=== PATIENT | male | born 1975 | race Caucasian/White ===

== ENCOUNTER 2020-03-27 17:45 | Emergency (ER) | payer SELFPAY ==
[~2020-03-27] VITALS: Ht 188 cm; Wt 125.2 kg
--- OUTSIDE RECORDS SUMMARY | 2020-03-27 18:05 | XMS REPORT ---
Author Author [facility] t Organization [facility] Address [address] [place] [address] Phone Unavailable Care Team Providers Care Manager Apple Name Role Phone Asked, Pcp No PCP Unavailable Ron SHIPMAN, Denys Cassidy Attphys Dane Mclain DO Attphys Sawyer SHIPMAN, Scott Attphys Delaney SHIPMAN, Tere Bright Attphys Grant SHIPMAN, Jenna Attphys Angelica SHIPMAN, Lia Attphys Janet Zuniga MD Attphys ROBIN CHAU NP Attphys Unavailable GILLES LEIVA NP Attphys Unavailable VALERIA PEOPLES M.D. Attphys Unavailable RAMÍREZ MCLAIN Admphys Unavailable Payers Payer Name Policy Type Policy Number Effective Date Expiration Date S ource [facility] PRESUMED INDIGENTPRESUMED INDIGENTxxxxxxxx2020- 020 xxxxxxxxx 2020 00:00:00 2020 23:59:59 [facility] Problems Condition Name Condition Details Condition Category Status Onset Date Resolution Date Last Treatment Date Treating Clinician Comments Source Chest pain Chest pain Disease Active 2020-03-17 00:00:00 [facility] Headache Headache Disease Active 2020-03-17 00:00:00 [facility] Nonintractable headache Nonintractable headache Disease Active 2020-03-16 00:00:[address] History of asthma History of asthma Problem Resolved [facility] History of hemorrhoids History of hemorrhoids Problem Resolved [facility] Right radial head fracture Right radial head fracture Problem Active [facility] Encounter to establish care with new doctor Encounter to establish care with new doctor Problem Active [facility] History of Hay fever History of Hay fever Problem Resolved [facility] History of Hernia History of Hernia Problem Resolved [facility] Anxiety and depression Anxiety and depression Problem Active [facility] Hemorrhoids Hemorrhoids Disease Active [facility] Thrombosed external hemorrhoid Thrombosed external hemorrhoid Disease Active [facility] Internal hemorrhoid Internal hemorrhoid Disease Active [facility] Seizures Seizures Disease Active [facility] Pain Pain Disease Active [facility] Allergies, Adverse Reactions, Alerts Allergy Name Allergy Type Status Severity Reaction(s) Onset Date Inacti ve Date Treating Clinician Comments Source Pyrazoles DA Active SV 2020-03-21 00:00:00 [facility] NSAIDS (Non-Steroidal Anti-Inflamma DA Active SV 2020-03-03 0 00:00:00 [facility] codeine DA Active SV 2020-03-21 00:00:00 [facility] aspirin DA Active SV 2020-03-21 00:00:00 [facility] salicylates DA Active U 2020-03-21 00:00:00 [facility] Pyrazoles DA Active SV 2018-06-11 00:00:00 [facility] NSAIDS (Non-Steroidal Anti-Inflamma DA Active SV 2018-06-02 0 00:00:00 [facility] codeine DA Active SV 2018-06-11 00:00:00 [facility] aspirin DA Active SV 2018-06-11 00:00:00 [facility] salicylates DA Active U 2018-06-11 00:00:00 [facility] Codeine Propensity to adverse reactions to drug Active Other (See Comments) 2018-06-07 00:00:00 [facility] [place] [facility]ist Family History Family Member Diagnosis Comments Start Date Stop Date Source Mother Family history of diabetes mellitus [facility] Mother Family history of hypertension [facility] Mother Family history of arthritis [facility] Mother Family history of malignant neoplasm [facility] Father Family history of diabetes mellitus [facility] Father Family history of hypertension [facility] Father Family history of arthritis [facility] Father Family history of malignant neoplasm [facility] Social History Social Habit Start Date Stop Date Quantity Comments Source Sex Assigned At [facility] Exposure to SARS-CoV-2 (event) Not sure [facility] Alcohol intake 2020-03-16 00:00:00 2020-03-16 00:00:00 Current non-drinker of alcohol (finding) [facility] Smoking Status Start Date Stop Date Source Current some day smoker [facility] Never smoker [facility] Medications Ordered Medication Name Filled Medication Name Start Date Stop Da te Current Medication? Ordering Clinician Indication Dosage Frequency Signature (SIG) Comments Components Source wowhugcdpq-jqmhapv-wjlvtnea (FIORINAL) 50-325-40 mg per caps ule 2020-03-19 00:00:00 2020-03-26 23:59:00 No 1{capsule} Q4H Take 1 capsule by mouth every 4 (four) hours as needed for headaches for up to 10 doses. [facility] levETIRAcetam (KEPPRA) 500 mg tablet 2020-03-14 00:00:00 Yes Acute intractable headache, unspecified headache type 500mg Q.5D Take 1 tablet by mouth [address] [facility] DULoxetine HCl - 20 MG Oral Capsule Delayed Release Pa rticles DULoxetine HCl - 20 MG Oral Capsule Delayed Release Particles 2018-08-19 00:00:00 Yes GILLES LEIVA NKeith 1 TAKE 1 CAPSULE BEDTIME [facility] acetaminophen (TYLENOL) 500 mg tablet 2018-06-23 00:00:00 Yes Internal hemorrhoid 500mg Take 1 tablet by mouth every 6 hours as needed for Pain. [facility] Vital Signs Vital Name Observation Time Observation Value Comments Source Systolic blood pressure 2020-03-19 15:25:57 110 mm[Hg] [facility] Diastolic blood pressure 2020-03-19 15:25:57 64 mm[Hg] [facility] Heart rate 2020-03-19 15:25:57 67 /min [facility] Alcazarist Body temperature 2020-03-19 15:25:57 35.72 Mayra Tati [facility] Respiratory rate 2020-03-19 15:25:57 20 /min Tati [facility] Oxygen saturation in Arterial blood by Pulse oximetry 03-19 15:25:57 98 /min [facility] Body height 2020-03-16 16:30:00 185.4 cm [facility] Body weight 2020-03-16 16:30:00 102.74 kg P[facility] Maier BMI 2020-03-16 16:30:00 29.88 kg/m2 [place] [facility] Systolic blood pressure 2020-03-14 21:15:00 147 mm[Hg] [facility] Diastolic blood pressure 2020-03-14 21:15:00 99 mm[Hg] [facility] Heart rate 2020-03-14 21:15:00 99 /min [facility] Body temperature 2020-03-14 21:15:00 36.78 [facility]ra [facility] Respiratory rate 2020-03-14 21:15:00 19 /min Jesse is [facility] Oxygen saturation in Arterial blood by Pulse oximetry 03-14 21:15:00 96 /min [facility] BP Systolic 2018-08-19 13:04:00 147 mm[Hg] Location: [facility] [place] on: [facility] BP Diastolic 2018-08-19 13:04:00 98 mm[Hg] Location: [facility] [place] on: [facility] Weight 2018-08-19 13:04:00 251.8 [lb_av] [facility] Temperature 2018-08-19 13:04:00 99.2 [degF] Method: Temporal [facility] Heart Rate 2018-08-19 13:04:00 79 /min Location: L Brachial Artery; [facility] Procedures Procedure Date / Time Performed Performing Clinician Sourc e POC GLUCOSE 2020-03-19 11:07:00 Deangelo Baltazar [facility] TB IN-TUBE QUANTIFERON PLUS 2020-03-19 07:16:00 Scott Jacques [facility] HC COMPLETE BLD COUNT W/AUTO DIFF 2020-03-19 07:16:00 Helder Sandhu [place] [facility] BASIC METABOLIC PANEL 2020-03-19 07:16:00 Myranda [facility]hu [facility] ESTIMATED GFR 2020-03-19 07:16:00 Myranda Sandhu [facility] POC GLUCOSE 2020-03-19 06:32:00 DelaneyEduardkathidali Kyleweston [facility] POC GLUCOSE 2020-03-18 20:59:00 Deangelo Baltazar Amweston [facility] POC GLUCOSE 2020-03-18 16:10:00 Vitormagdaleno Eduardkathidali Kyleweston [facility] POC GLUCOSE 2020-03-18 11:08:00 Delaney, Deangelo Kyleweston [facility] POC GLUCOSE 2020-03-18 06:59:00 Scott Jacques odist BLOOD CULTURE, AEROBIC & ANAEROBIC 2020-03-18 05:12:00 Cristóbal Jacques CBC HEMOGRAM 2020-03-18 05:12:00 Scott Jacques odist BASIC METABOLIC PANEL 2020-03-18 05:12:00 Scott Jacques MAGNESIUM LEVEL 2020-03-18 05:12:00 Scott Jacques Meth odist CREATINE KINASE, TOTAL (CPK) 2020-03-18 05:12:00 Scott Jacques ESTIMATED GFR 2020-03-18 05:12:00 Scott Jacques odnaveed BLOOD CULTURE, AEROBIC & ANAEROBIC 2020-03-18 05:05:00 Cristóbal Jacques POC GLUCOSE 2020-03-17 21:00:[address] ANGIOGRAM PE CHEST 2020-03-17 20:08:56 Scott Jacques [facility] MRI BRAIN WO CONTRAST 2020-03-17 19:30:46 Scott Jacques [facility] SYPHILIS TOTAL ANTIBODY 2020-03-17 18:53:00 Scott Jacques [facility] POC GLUCOSE 2020-03-17 16:12:00 Scott Jacques Meth odist TROPONIN 2020-03-17 15:51:00 Scott Jacques odist CREATINE KINASE, TOTAL (CPK) 2020-03-17 15:51:00 Scott Jacques TTE COMPLETE, WO CONTRAST, W DOPPLER ([id number]) 2020-03-17 12:48:19 SawyerScott [facility] POC GLUCOSE 2020-03-17 12:01:00 SawyerScott benton odist TROPONIN 2020-03-17 11:58:00 Scott Jacques odnaveed THYROID STIMULATING HORMONE 2020-03-17 11:58:00 Scott Jacques [facility] POC GLUCOSE 2020-03-17 06:42:00 Ramírez Mclain HC COMPLETE BLD COUNT W/AUTO DIFF 2020-03-17 06:14:00 Bryan Nicole BASIC METABOLIC PANEL 2020-03-17 06:14:00 Lynne Nicole B NATRIURETIC PEPTIDE 2020-03-17 06:14:00 Lynne Nicole [facility] LIPID PANEL 2020-03-17 06:14:00 Bryan Nicoleozdallin Vernon odnaveed ESTIMATED GFR 2020-03-17 06:14:00 Lynne Nicole odnaveed HEMOGLOBIN A1C 2020-03-17 06:14:00 Bryan Nicoleozdallin Vernon odnaveed D-DIMER 2020-03-17 06:14:00 Bryan Nicoleozdallin Vernon odnaveed TROPONIN 2020-03-17 06:14:00 Lynne Nicole odnaveed URINE CULTURE 2020-03-17 03:00:00 Bryan Nicoleozdallin [facility] Meth odnaveed URINE DRUGS OF ABUSE SCREEN 2020-03-17 03:00:00 Khanh Velasquez URINALYSIS SCREEN AND MICROSCOPY, WITH REFLEX TO CULTURE 202 03:00:00 Lynne Nicole LACTIC ACID LEVEL, SEPSIS - NOW AND REPEAT 2X EVERY 3 HOURS 2020-03-17 02:32:[address] ANGIOGRAM HEAD W WO CONTRAST 2020-03-16 22:34:38 Khanh Velasquez ALCOHOL LEVEL, BLOOD 2020-03-16 21:44:00 Khanh Velasquez TROPONIN 2020-03-16 21:44:00 Khanh Velasquez LACTIC ACID LEVEL, SEPSIS - NOW AND REPEAT 2X EVERY 3 HOURS 2020-03-16 21:44:00 Ron Khanh [facility] BLOOD CULTURE, AEROBIC & ANAEROBIC 2020-03-16 20:05:00 Ron Vickie [facility] BLOOD CULTURE, AEROBIC & ANAEROBIC 2020-03-16 20:00:00 Ron, Vickie neri [facility] LACTIC ACID LEVEL, SEPSIS - NOW AND REPEAT 2X EVERY 3 HOURS 2020-03-16 20:00:00 Raymundo Velasqueznichole [facility] HEAD WO CONTRAST 2020-03-16 18:00:48 Ron Khanh [facility] ECG ED PRELIMINARY INTERPRETATION 2020-03-16 17:41:22 Raymundo Velasquez nichole [facility] HC COMPLETE BLD COUNT W/AUTO DIFF 2020-03-16 17:01:00 Ron Raymundo [facility] PROTHROMBIN TIME WITH INR 2020-03-16 17:01:00 Ron Khanh [place] [facility] PARTIAL THROMBOPLASTIN TIME (PTT) 2020-03-16 17:01:00 Ron Raymundo [facility] COMPREHENSIVE METABOLIC PANEL 2020-03-16 17:01:00 Raymundo Velasqueznichole [facility] LIPASE LEVEL 2020-03-16 17:01:00 RonKhanh Meth odist TROPONIN 2020-03-16 17:01:00 Khanh Velasquez Meth odist ESTIMATED GFR 2020-03-16 17:01:00 RonKhanh Meth odist XR CHEST 1 VW PORTABLE 2020-03-16 16:49:11 Raymundo Velasqueznichole Mcfarlane Tat[facility] on [facility] ECG 12-LEAD 2020-03-16 16:35:28 Ron Khanh [facility] odist [facility] EKG PROC 12 LEAD EKG; TRACING ONLY 2020-03-14 23:06:[address] [facility] BMP POC 2020-03-14 21:39:[address] [facility] CREATININE POC 2020-03-14 21:38:[address] [facility] CBC/DIFF 2020-03-14 21:29:[address] [facility] MAGNESIUM 2020-03-14 21:29:00 Angelica [facility] CBC 2020-03-14 21:29:[address] [facility] COMPREHENSIVE METABOLIC PANEL 2020-03-14 21:29:[address] [facility] CREATININE POC 2020-03-14 03:02:00 Stalin Zuniga [facility] h CBC/DIFF 2020-03-14 02:56:00 Colin Avery [facility] ealth CBC 2020-03-14 02:56:00 Colin Avery [facility] ealt CONSULT CLINICAL CASE MANAGEMENT (RN/SW) 2020-03-14 02:40:[address] [facility] CT HEAD W/O CONTRAST 2020-03-14 01:23:00 Colin [facility]very [facility] Planned Activity Planned Date Details Comments Source Future Scheduled Test 2020-08-02 00:00:00 IMM Influenza Seas onal Aug to December (>/= 19 yrs) [code = IMM Influenza Seasonal Aug to December (>/= [address] yrs)] [facility] Future Scheduled Test 2020-06-02 00:00:00 INFLUENZA VACCINE [code = INFLUENZA VACCINE] [place] [facility] Encounters Start Date/Time End Date/Time Encounter Type Admission Type Attendi [facility] Facility Care Department Encounter ID Source 2020-03-27 10:13:00 2020-03-27 10:13:00 Emergency E [facility]SE [id number] SE 2020-03-26 23:06:00 2020-03-26 23:06:00 Emergency E MHSE MHSE [id number] MHSE 2020-03-16 00:00:00 2020-03-19 00:00:00 Inpatient DEANGELO BALTAZAR [facility] [id number] [place] [facility] 2020-03-15 00:15:00 2020-03-15 00:15:00 Emergency E MHSE MHSE [id number] MHSE 2018-09-01 13:30:00 2018-09-01 13:30:00 Appointment; ROBIN RODRIGUEZ NP TEJADA-FOSTER, NORMA, NP [facility] [id number] [facility] 2018-08-19 13:00:00 2018-08-19 13:00:00 Appointment; GILLES LEIVA N P BECK, SHERI, NP [facility] [id number] [facility] 2018-06-22 22:27:02 2018-06-22 22:27:02 Emergency [facility] [id number] [facility] 2017-01-15 10:15:00 2017-01-15 10:15:00 Appointment; VALERIA PEOPLES M.D. LI-YUNG HING, ANDREW, M.D. [facility] UTP [id number] [facility] 2016-12-25 08:45:00 2016-12-25 08:45:00 Appointment; VALERIA PEOPLES M.D. LI-YUNG HING, ANDREW, M.D. [facility] UTP [id number] [facility] Results Test Description Test Time Test Comments Results Result Comments Source ACETAMINOPHEN 2020-03-26 22:00:00 Test Item ACETAMINOPHEN (test code = ACET) < 10 mcg/mL 10-30 L A RANGE OF 10-30 mcg/mL IS A THERAPEUTIC RANGE. TOXIC CONCENTRATIONS: >150 mcg/mL AT 4 HOURS AFTER INGESTION >= 50 mcg/mL AT 12 HOURS AFTER INGESTION [id number] 22:00:00* Test Item Value Reference Range Interpretation Comments SALICYLATE (test code = LYLE) < 1.7 mg/dL 2.8-20.0 L BASIC METABOLIC [id number] 20:04:00* Test Item Value Reference Range Interpretation Comments SODIUM (test code = NA) 139 mmol/L 136-145 N POTASSIUM (test code = K) 4.0 mmol/L 3.5-5.1 N CHLORIDE (test code = CL) 104.0 mmol/L 98-107 N CARBON DIOXIDE (test code = CO2) 26.0 mmol/L 21-32 N ANION GAP (test code = GAP) 13.0 10-20 N GLUCOSE (test code = GLU) 111 mg/dL 74-106 H BLOOD UREA NITROGEN (test code = BUN) 13 mg/dL 7-18 N GLOMERULAR FILTRATION RATE (test code = GFR) > 60 mL/min >=60 Estimated GFR by using Modified MDRD formula.Chronic kidney disease is defined as either kidney damageor GFR <60 mL/min/1.73 m2 for >3 months. CREATININE (test code = CREAT) 1.10 mg/dL 0.7-1.3 N BUN/CREATININE RATIO (test code = BUN/CREA) 11.7 10-20 N CALCIUM (test code = CA) 9.5 mg/dL 8.5-10.1 N HEPATIC FUNCTION [id number] 20:04:00* Test Item Value Reference Range Interpretation Comments TOTAL PROTEIN (test code = PROT) 8.5 gram/dL 6.4-8.2 H ALBUMIN (test code = ALB) 4.2 g/dL 3.4-5.0 N GLOBULIN (test code = GLOB) 4.3 gram/dL 2.7-4.2 H ALBUMIN/GLOBULIN RATIO (test code = A/G) 1.0 0.75-1.50 N BILIRUBIN TOTAL (test code = BILT) 0.30 mg/dL 0.0-1.0 N BILIRUBIN DIRECT (test code = BILD) 0.12 mg/dL 0.0-0.20 N SGOT/AST (test code = AST) 17 IUnit/L 15-37 N SGPT/ALT (test code = ALT) 45 IUnit/L 12-78 N ALKALINE PHOSPHATASE TOTAL (test code = ALKP) 155 IUnit/L 45-117 H Note change in reference range due to change in reagent. [id number] 20:04:00* Test Item Value Reference Range Interpretation Comments LIPASE (test code = LIP) 126 U/L 73.0-393.0 N [id number] 20:04:00* Test Item Value Reference Range Interpretation Comments TROPONIN-I (test code = TROPI) <0.015 ng/mL 0-0.045 N PROTHROMBIN [id number] 19:54:00* Test Item Value Reference Range Interpretation Comments PROTHROMBIN TIME PATIENT (test code = PTP) 10.9 seconds 9.0-14.0 N INTERNATIONAL NORMAL RATIO (test code = INR) 0.9 0.8-1.2 N The therapeutic range for oral anticoagulant therapy formost indications is an international normalized ratio (INR)of between 2.0 and 3.0. The recommended therapeutic INRrange for various clinical situations is listed below: Clinical Situation INR range Pulmonary e mbolism treatment (2.0-3.0)Venous thrombosis treatmentVenous thrombosis prophylaxis (high risk surgery)Prevention of systemic embolism from: Acute myocardial infarction Valvular heart disease Atrial fibrillation Mechanical prosthetic heart valves (2.5-3.5) IS PATIENT ON ANTICOAGULANTS? NTHROMBOPLASTIN TIME [id number] 19:54:00* Test Item Value Reference Range Interpretation Comments THROMBOPLASTIN TIME PARTIAL (test code = PTT) 32.3 seconds 23.0-37. 0 N IS PATIENT ON ANTICOAGULANTS? NBASIC METABOLIC [id number] 19:50:00* Test Item Value Reference Range Interpretation Comments SODIUM (test code = NA) 139 mmol/L 136-145 N POTASSIUM (test code = K) 4.0 mmol/L 3.5-5.1 N CHLORIDE (test code = CL) 104.0 mmol/L 98-107 N CARBON DIOXIDE (test code = CO2) mmol/L 21-32 ANION GAP (test code = GAP) 10-20 GLUCOSE (test code = GLU) mg/dL 74-106 BLOOD UREA NITROGEN (test code = BUN) mg/dL 7-18 GLOMERULAR FILTRATION RATE (test code = GFR) mL/min >=60 CREATININE (test code = CREAT) mg/dL 0.7-1.3 BUN/CREATININE RATIO (test code = BUN/CREA) 10-20 CALCIUM (test code = CA) mg/dL 8.5-10.1 HEPATIC FUNCTION [id number] 19:50:00* Test Item Value Reference Range Interpretation Comments TOTAL PROTEIN (test code = PROT) gram/dL 6.4-8.2 ALBUMIN (test code = ALB) g/dL 3.4-5.0 GLOBULIN (test code = GLOB) gram/dL 2.7-4.2 ALBUMIN/GLOBULIN RATIO (test code = A/G) 0.75-1.50 BILIRUBIN TOTAL (test code = BILT) mg/dL 0.0-1.0 BILIRUBIN DIRECT (test code = BILD) mg/dL 0.0-0.20 SGOT/AST (test code = AST) IUnit/L 15-37 SGPT/ALT (test code = ALT) IUnit/L 12-78 ALKALINE PHOSPHATASE TOTAL (test code = ALKP) IUnit/L 45-117 [id number] 19:50:00* Test Item Value Reference Range Interpretation Comments LIPASE (test code = LIP) U/L 73.0-393.0 [id number] 19:50:00* Test Item Value Reference Range Interpretation Comments TROPONIN-I (test code = TROPI) ng/mL 0-0.045 CBC W/O [id number] 19:42:00* Test Item Value Reference Range Interpretation Comments WHITE BLOOD CELL (test code = WBC) 9.8 K/mm3 4.5-12.5 N RED BLOOD CELL (test code = RBC) 5.82 mill/mm3 4.0-5.8 H HEMOGLOBIN (test code = HGB) 17.0 gram/dL 13.0-17.5 N HEMATOCRIT (test code = HCT) 48.4 % 42.0-52.0 N MEAN CELL VOLUME (test code = MCV) 83.2 fL 80-98 N MEAN CELL HGB (test code = MCH) 29.2 picogram 27.0-33.0 N MEAN CELL HGB CONCETRATION (test code = MCHC) 35.1 gram/dL 33.0-36. 0 N RED CELL DISTRIBUTION WIDTH (test code = RDW) 12.5 % 11.6-16. 2 N PLATELET COUNT (test code = PLT) 349 K/mm3 150-450 N MEAN PLATELET VOLUME (test code = MPV) 8.8 fL 6.7-11.0 N CBC W/O [id number] 19:40:00* Test Item Value Reference Range Interpretation Comments WHITE BLOOD CELL (test code = WBC) K/mm3 4.5-12.5 RED BLOOD CELL (test code = RBC) mill/mm3 4.0-5.8 HEMOGLOBIN (test code = HGB) 17.0 gram/dL 13.0-17.5 N HEMATOCRIT (test code = HCT) 48.4 % 42.0-52.0 N MEAN CELL VOLUME (test code = MCV) fL 80-98 MEAN CELL HGB (test code = MCH) picogram 27.0-33.0 MEAN CELL HGB CONCETRATION (test code = MCHC) gram/dL 33.0-36. 0 RED CELL DISTRIBUTION WIDTH (test code = RDW) % 11.6-16. 2 PLATELET COUNT (test code = PLT) K/mm3 150-450 MEAN PLATELET VOLUME (test code = MPV) fL 6.7-11.0 URINALYSIS [id number] 19:33:00* Test Item Value Reference Range Interpretation Comments UA COLOR (test code = COLU) YELLOW YELLOW UA APPEARANCE (test code = APPU) CLEAR CLEAR UA GLUCOSE DIPSTICK (test code = DGLUU) NEGATIVE mg/dL NEGATIVE UA BILIRUBIN DIPSTICK (test code = BILU) NEGATIVE mg/dL NEGATIVE UA KETONE DIPSTICK (test code = KETU) NEGATIVE mg/dL NEGATIVE UA SPECIFIC GRAVITY (test code = SGU) 1.026 1.001-1.035 UA BLOOD DIPSTICK (test code = CONSUELO) Negative mg/dL NEGATIVE UA PH DIPSTICK (test code = VINEET) 6.0 5.0-8.0 UA PROTEIN DIPSTICK (test code = PROU) 20 (Trace) mg/dL NEGATIVE A UA UROBILINIOGEN DIPSTICK (test code = URO) 2.0 (1+) mg/dL NEGATIVE A UA NITRITE DIPSTICK (test code = ALONDRA) NEGATIVE NEGATIVE UA LEUKOCYTE ESTERASE W REFLEX (test code = LEUUR) NEGATIVE Radha/uL NEGATIVE UA WBC (test code = WBCU) 0-5 per HPF 0-5 UA RBC (test code = RBCU) 0-2 #/HPF 0-5 UA EPITHELIAL CELLS (test code = EPIU) None seen per HPF FEW UA BACTERIA (test code = BACU) NONE SEEN #/HPF NONE UA CALCIUM OXALATE CRYSTALS (test code = CAOXU) FEW #/HPF NONE A UA MUCUS (test code = MUCU) MANY #/LPF FEW A Urine Source? Clean CatchURINALYSIS [id number] 19:31:00* Test Item Value Reference Range Interpretation Comments UA COLOR (test code = COLU) YELLOW YELLOW UA APPEARANCE (test code = APPU) CLEAR CLEAR UA GLUCOSE DIPSTICK (test code = DGLUU) NEGATIVE mg/dL NEGATIVE UA BILIRUBIN DIPSTICK (test code = BILU) NEGATIVE mg/dL NEGATIVE UA KETONE DIPSTICK (test code = KETU) NEGATIVE mg/dL NEGATIVE UA SPECIFIC GRAVITY (test code = SGU) 1.026 1.001-1.035 UA BLOOD DIPSTICK (test code = CONSUELO) Negative mg/dL NEGATIVE UA PH DIPSTICK (test code = VINEET) 6.0 5.0-8.0 UA PROTEIN DIPSTICK (test code = PROU) 20 (Trace) mg/dL NEGATIVE A UA UROBILINIOGEN DIPSTICK (test code = URO) 2.0 (1+) mg/dL NEGATIVE A UA NITRITE DIPSTICK (test code = ALONDRA) NEGATIVE NEGATIVE UA LEUKOCYTE ESTERASE W REFLEX (test code = LEUUR) NEGATIVE Radha/uL NEGATIVE UA WBC (test code = WBCU) per HPF 0-5 UA RBC (test code = RBCU) per HPF 0-5 UA EPITHELIAL CELLS (test code = EPIU) per HPF Few UA BACTERIA (test code = BACU) per HPF NONE Urine Source? Clean CatchBlood culture, aerobic & [id number] 11:03:04* Test Item Value Reference Range Interpretation Comments Blood culture isolate (test code = 600-7) No growth after 5 days of incubation. Specimen InformationSpecimen Source: BloodSpecimen [facility] [id number] 15:26:00* Test Item Value Reference Range Interpretation Comments UA PH DIPSTICK (test code = VINEET) 7.0 5.0-8.0 URN COCAINE (test code = COCAURN) NEGATIVE <300 ng/mL URN CANNABINOIDS (test code = CANNABURN) NEGATIVE <50 ng/mL URN AMPHETAMINE (test code = AMPHETURN) NEGATIVE <1000 ng/mL URN BARBITURATE (test code = BARBITURN) POSITIVE <200 ng/mL A This test provides only a preliminary test result. A morespecific alternate chemical method must be used in order toobtain a confirmed analytical result. Gas chromatography/mass spectrometry (GC/MS) is thepreferred confirmatory method. Other chemical confirmationmethods are available. Clinical consideration and professional judgment should be applied to any drug of abusetest result, particularly when preliminary positive resultsare used.Unconfirmed screening results must not be used fornon-medical purposes (e.g., employment testing, legaltesting). URN BENZODIAZEPINE (test code = BENZOURN) NEGATIVE <200 ng/mL URN OPIATES (test code = OPIATURN) NEGATIVE <300 ng/mL URN PHENCYCLIDINE (PCP) (test code = PHENCURN) NEGATIVE <25 ng/ mL URN METHADONE (test code = METHAURN) NEGATIVE <300 ng/mL DRUGS OF ABUSE SCREEN [id number] 15:16:00* Test Item Value Reference Range Interpretation Comments UA PH DIPSTICK (test code = VINEET) 5.0-8.0 URN COCAINE (test code = COCAURN) NEGATIVE <300 ng/mL URN CANNABINOIDS (test code = CANNABURN) NEGATIVE <50 ng/mL URN AMPHETAMINE (test code = AMPHETURN) NEGATIVE <1000 ng/mL URN BARBITURATE (test code = BARBITURN) POSITIVE <200 ng/mL A This test provides only a preliminary test result. A morespecific alternate chemical method must be used in order toobtain a confirmed analytical result. Gas chromatography/mass spectrometry (GC/MS) is thepreferred confirmatory method. Other chemical confirmationmethods are available. Clinical consideration and professional judgment should be applied to any drug of abusetest result, particularly when preliminary positive resultsare used.Unconfirmed screening results must not be used fornon-medical purposes (e.g., employment testing, legaltesting). URN BENZODIAZEPINE (test code = BENZOURN) NEGATIVE <200 ng/mL URN OPIATES (test code = OPIATURN) NEGATIVE <300 ng/mL URN PHENCYCLIDINE (PCP) (test code = PHENCURN) NEGATIVE <25 ng/ mL URN METHADONE (test code = METHAURN) NEGATIVE <300 ng/mL URINALYSIS [id number] 14:51:00* Test Item Value Reference Range Interpretation Comments UA COLOR (test code = COLU) Light-Yellow YELLOW UA APPEARANCE (test code = APPU) CLEAR CLEAR UA GLUCOSE DIPSTICK (test code = DGLUU) NEGATIVE mg/dL NEGATIVE UA BILIRUBIN DIPSTICK (test code = BILU) NEGATIVE mg/dL NEGATIVE UA KETONE DIPSTICK (test code = KETU) NEGATIVE mg/dL NEGATIVE UA SPECIFIC GRAVITY (test code = SGU) 1.049 1.001-1.035 UA BLOOD DIPSTICK (test code = CONSUELO) Negative mg/dL NEGATIVE UA PH DIPSTICK (test code = VINEET) 7.0 5.0-8.0 UA PROTEIN DIPSTICK (test code = PROU) NEGATIVE mg/dL NEGATIVE UA UROBILINIOGEN DIPSTICK (test code = URO) Normal mg/dL NEGATIVE UA NITRITE DIPSTICK (test code = ALONDRA) NEGATIVE NEGATIVE UA LEUKOCYTE ESTERASE W REFLEX (test code = LEUUR) NEGATIVE Radha/uL NEGATIVE UA WBC (test code = WBCU) 0-5 per HPF 0-5 UA RBC (test code = RBCU) 0-2 #/HPF 0-5 UA EPITHELIAL CELLS (test code = EPIU) FEW per HPF FEW UA BACTERIA (test code = BACU) NONE SEEN #/HPF NONE UA HYALINE CAST (test code = HYALU) 0-2 #/LPF 0-5 Urine Source? Clean CatchURINALYSIS [id number] 14:48:00* Test Item Value Reference Range Interpretation Comments UA COLOR (test code = COLU) Light-Yellow YELLOW UA APPEARANCE (test code = APPU) CLEAR CLEAR UA GLUCOSE DIPSTICK (test code = DGLUU) NEGATIVE mg/dL NEGATIVE UA BILIRUBIN DIPSTICK (test code = BILU) NEGATIVE mg/dL NEGATIVE UA KETONE DIPSTICK (test code = KETU) NEGATIVE mg/dL NEGATIVE UA SPECIFIC GRAVITY (test code = SGU) 1.049 1.001-1.035 UA BLOOD DIPSTICK (test code = CONSUELO) Negative mg/dL NEGATIVE UA PH DIPSTICK (test code = VINEET) 7.0 5.0-8.0 UA PROTEIN DIPSTICK (test code = PROU) NEGATIVE mg/dL NEGATIVE UA UROBILINIOGEN DIPSTICK (test code = URO) Normal mg/dL NEGATIVE UA NITRITE DIPSTICK (test code = ALONDRA) NEGATIVE NEGATIVE UA LEUKOCYTE ESTERASE W REFLEX (test code = LEUUR) NEGATIVE Radha/uL NEGATIVE UA WBC (test code = WBCU) per HPF 0-5 UA RBC (test code = RBCU) per HPF 0-5 UA EPITHELIAL CELLS (test code = EPIU) per HPF Few UA BACTERIA (test code = BACU) per HPF NONE Urine Source? Clean [id number] 13:15:00* Test Item Value Reference Range Interpretation Comments ALCOHOL (test code = ALC) < 3 mg/dL 0-3 N IN TERPRETATION: ETHYL ALCOHOL VALUES 50 MG/DL - NOT INTOXICATED 100 MG/DL - INTOXICATED 350-450 MG/DL- SEVERELY INTOXICATED >= 550 MG/DL - FATAL INTOXICATION - CT ABD PELVIS [id number] 12:10:00 Name: CARLO MARTINI [facility] [employer] [employer] [facility] [employer] : 1975 Age/S: 44 / M [address] [facility] Unit #: [id number] Loc: [place] [address] Phys: Roman Hopkins DO Acct: [id number] Dis Date: Status: REG ER PHONE #: [phone] Exam Date: 03/21/2020 1150 FAX #: [phone] Reason: abd pain/reported no BM for 20 days EXAMS: CPT CODE: [id number] CT ABD PELVIS W/CONT 11451 HISTORY: Abdominal pain and no BM for 20 days. COMPARISON: CT scan from June 11, 2018. Location: [facility]. CT of abdomen and pelvis with IV contrast: 100 mL of Isovue-370. Automated exposure control. CT abdomen: The lung bases are clear. Dependent changes. Hepatic parenchyma enhances homogeneously. No discrete mass or nodules. Gallbladder is without radiopaque stones. Portal vein and hepatic artery are patent. The liver measured 19.2 cm in length. The spleen is not enlarged and enhanced homogeneously. The stomach distended incompletely however it is normal in appearance. Pancreas is enhancing homogeneously. Unremarkable adrenals. Kidneys are free from hydroureteronephro sis. Homogeneous enhancement. Bilateral excretion. No pathol ogic adenopathy. Well-opacified abdominal and pelvic vasculature. No bowel obstruction or colitis or diverticulitis or enteritis. Cons tipation. CT PELVIS: Appendix is normal. Pelvic laurent l loops are unobstructed. No free fluid or free air or abscess. Unremarkable urinary bladder distended well. Prostatomegaly at 5.4 cm. No pelvic pathologic adenopathy. Subcutaneous tissues and the mus culature are normal in appearance. No lytic or blastic lesions are noted w ithin the bony skeleton. Bone island within the right acetabulum. IMPRESSION: PAGE 1 Signed Report (CONTINUED) Name: CARLO MARTINI [facility] [place] : 1975 Age/S: 44 / M [address] Unit #: [id number] Loc: [place] [address] Phys: Roman Hopkins DO Acct: [id number] Dis Date: Status: REG ER PHONE #: [phone] Exam Date: 03/21/2020 1150 FAX #: [phone] Reason: abd pain/reported no BM for 20 days EXAMS: CPT CODE: [id number] CT ABD PELVIS W/CONT 69019 < Continued> Normal appendix without bowel obstruction or colitis or diverticulitis or enteritis. Mild constipation. No free fluid or free air or abscess. No hydroureteronephrosis with unremarkable urinary bladder. No pathologic adenopathy. Mild prostatomegaly. at 1210 Reported and signed by: Terrance Elias M.D. CC: Dane Membreon; Roman Hopkins DO Technologist:Brooks Brandon RT(R),(MR),(CT) CTDI: DLP: Trnscb Date/Time: 03/21/2020 (1210) t.SDR.TH4 Orig Print D/T: S: 03/21/2020 (2382) PAGE 2 Signed Report BASIC METABOLIC [id number] 11:19:00* Test Item Value Reference Range Interpretation Comments SODIUM (test code = NA) 140 mmol/L 136-145 N POTASSIUM (test code = K) 4.0 mmol/L 3.5-5.1 N CHLORIDE (test code = CL) 109.0 mmol/L 98-107 H CARBON DIOXIDE (test code = CO2) 24.0 mmol/L 21-32 N ANION GAP (test code = GAP) 11.0 10-20 N GLUCOSE (test code = GLU) 103 mg/dL 74-106 N BLOOD UREA NITROGEN (test code = BUN) 10 mg/dL 7-18 N GLOMERULAR FILTRATION RATE (test code = GFR) > 60 mL/min >=60 Estimated GFR by using Modified MDRD formula.Chronic kidney disease is defined as either kidney damageor GFR <60 mL/min/1.73 m2 for >3 months. CREATININE (test code = CREAT) 1.00 mg/dL 0.7-1.3 N BUN/CREATININE RATIO (test code = BUN/CREA) 10.1 10-20 N CALCIUM (test code = CA) 9.0 mg/dL 8.5-10.1 N HEPATIC FUNCTION [id number] 11:19:00* Test Item Value Reference Range Interpretation Comments TOTAL PROTEIN (test code = PROT) 7.6 gram/dL 6.4-8.2 N ALBUMIN (test code = ALB) 3.7 g/dL 3.4-5.0 N GLOBULIN (test code = GLOB) 3.9 gram/dL 2.7-4.2 N ALBUMIN/GLOBULIN RATIO (test code = A/G) 0.9 0.75-1.50 N BILIRUBIN TOTAL (test code = BILT) 0.30 mg/dL 0.0-1.0 N BILIRUBIN DIRECT (test code = BILD) 0.10 mg/dL 0.0-0.20 N SGOT/AST (test code = AST) 39 IUnit/L 15-37 H SGPT/ALT (test code = ALT) 73 IUnit/L 12-78 N ALKALINE PHOSPHATASE TOTAL (test code = ALKP) 136 IUnit/L 45-117 H Note change in reference range due to change in reagent. [id number] 11:19:00* Test Item Value Reference Range Interpretation Comments LIPASE (test code = LIP) 192 U/L 73.0-393.0 N BASIC METABOLIC [id number] 11:15:00* Test Item Value Reference Range Interpretation Comments SODIUM (test code = NA) 140 mmol/L 136-145 N POTASSIUM (test code = K) 4.0 mmol/L 3.5-5.1 N CHLORIDE (test code = CL) 109.0 mmol/L 98-107 H CARBON DIOXIDE (test code = CO2) mmol/L 21-32 ANION GAP (test code = GAP) 10-20 GLUCOSE (test code = GLU) mg/dL 74-106 BLOOD UREA NITROGEN (test code = BUN) mg/dL 7-18 GLOMERULAR FILTRATION RATE (test code = GFR) mL/min >=60 CREATININE (test code = CREAT) mg/dL 0.7-1.3 BUN/CREATININE RATIO (test code = BUN/CREA) 10-20 CALCIUM (test code = CA) mg/dL 8.5-10.1 HEPATIC FUNCTION [id number] 11:15:00* Test Item Value Reference Range Interpretation Comments TOTAL PROTEIN (test code = PROT) gram/dL 6.4-8.2 ALBUMIN (test code = ALB) g/dL 3.4-5.0 GLOBULIN (test code = GLOB) gram/dL 2.7-4.2 ALBUMIN/GLOBULIN RATIO (test code = A/G) 0.75-1.50 BILIRUBIN TOTAL (test code = BILT) mg/dL 0.0-1.0 BILIRUBIN DIRECT (test code = BILD) mg/dL 0.0-0.20 SGOT/AST (test code = AST) IUnit/L 15-37 SGPT/ALT (test code = ALT) IUnit/L 12-78 ALKALINE PHOSPHATASE TOTAL (test code = ALKP) IUnit/L 45-117 [id number] 11:15:00* Test Item Value Reference Range Interpretation Comments LIPASE (test code = LIP) U/L 73.0-393.0 CBC W/O [id number] 11:10:00* Test Item Value Reference Range Interpretation Comments WHITE BLOOD CELL (test code = WBC) 7.3 K/mm3 4.5-12.5 N RED BLOOD CELL (test code = RBC) 5.22 mill/mm3 4.0-5.8 N HEMOGLOBIN (test code = HGB) 15.1 gram/dL 13.0-17.5 N HEMATOCRIT (test code = HCT) 43.3 % 42.0-52.0 N MEAN CELL VOLUME (test code = MCV) 83.0 fL 80-98 N MEAN CELL HGB (test code = MCH) 28.9 picogram 27.0-33.0 N MEAN CELL HGB CONCETRATION (test code = MCHC) 34.9 gram/dL 33.0-36. 0 N RED CELL DISTRIBUTION WIDTH (test code = RDW) 12.1 % 11.6-16. 2 N PLATELET COUNT (test code = PLT) 68 K/mm3 150-450 L MEAN PLATELET VOLUME (test code = MPV) 9.4 fL 6.7-11.0 N - CT HEAD/BRAIN W/O [id number] 11:09:00 Name: CARLO MARTINI [employer] : 1975 Age/S: 44 / M [address] [facility] Unit #: [id number] Loc: [place] [address] Phys: Roman Hopkins DO Acct: [id number] Dis Date: Status: REG ER PHONE #: [phone] Exam Date: 03/21/2020 1109 FAX #: [phone] Reason: headache EXAMS: CPT CODE: [id number] CT HEAD/BRAIN W/O CONT 58434 HISTORY: Headaches. COMPARISON: None available. Location: [facility]. CT brain without contrast: Automated exposure. No acute intracranial bleeds or extra-axial collections and there is no acute territorial vascular infarction. The gaines-white matter differentiation is preserved. The sulci, gyri, ventricles and subarachnoid spaces and the basilar cisterns are normal for patient's age. No herniation or hydrocephalus or midline shift is noted. Fourth ventricle remains midline. Portions of the visualized paranasal sinuses are unremarkable. No obvious bony calvarial defect is noted. Partially calcified sebaceous cyst along the right parietal scalp. IMPRESSION: No acute intracranial bleeds or extra-axial collections. No acute t erritorial vascular infarction. No herniation or hydrocephalus or midline shift. at 1109 Reported and signed by: Terrance Elias M.D. CC: Dane Membreno; Roman Hopkins DO Technologist:Brooks Brandon RT(R),(MR),(CT); CTDI: DLP: Trnscb D ate/Time: 03/21/2020 (1109) t.SDR.TH4 Orig Print D/T: S: 03/21/2020 (1112) PAGE 1 Signed Report CBC W/O [id number] 10:52:00* Test Item Value Reference Range Interpretation Comments WHITE BLOOD CELL (test code = WBC) K/mm3 4.5-12.5 RED BLOOD CELL (test code = RBC) mill/mm3 4.0-5.8 HEMOGLOBIN (test code = HGB) 15.1 gram/dL 13.0-17.5 N HEMATOCRIT (test code = HCT) 43.3 % 42.0-52.0 N MEAN CELL VOLUME (test code = MCV) fL 80-98 MEAN CELL HGB (test code = MCH) picogram 27.0-33.0 MEAN CELL HGB CONCETRATION (test code = MCHC) gram/dL 33.0-36. 0 RED CELL DISTRIBUTION WIDTH (test code = RDW) % 11.6-16. 2 PLATELET COUNT (test code = PLT) K/mm3 150-450 MEAN PLATELET VOLUME (test code = MPV) fL 6.7-11.0 TB IN-TUBE Quantiferon [id number] 14:17:11* Test Item Value Reference Range Interpretation Comments Quantitative NIL (test code = 5322) 0.020 IU/mL Quantitative TB1 (test code = 5501) 0.020 IU/mL Quantitative TB2 (test code = 5502) 0.030 IU/mL Quantitative mitogen (test code = 5324) 5.110 IU/mL Quant TB1-NIL (test code = 5503) 0.000 IU/mL Quant TB2-NIL (test code = 5504) 0.010 IU/mL Quantitative mitogen-NIL (test code = 5326) 5.090 IU/mL Qualitative interpretation (test code = 5327) Negative Results are POSITIVE when either of the following conditions are met:1.Nil <= 8.0 AND TB1-Nil >= 0.35 AND >= 25% of Nil (TB2 is any value) or2.Nil <= 8.0 AND TB2-Nil >= 0.35 AND >= 25% of Nil (TB1 is any value)Results are NEGATIVE when all of the following conditions are met:1.Nil <= 8.02.TB1-Nil and TB2-Nil < 0.35 or [>= 0.35 AND < 25% of Nil]3.Mitogen-Nil >= 0.50Results are INDETERMINATE under either of the following conditions:1a.Nil <= 8.0 AND Mitogen-Nil < 0.50 AND 1b1b.Both TB1-Nil AND TB2-Nil < 0.35 or [>= 0.35 AND <25% of Nil]2.Nil > 8.0Warnings and Limitations1)A negative QFT-Plus result does not preclude the possibility of M. tuberculosis infection or tuberculosis disease: False-negative results can be due to stage of infection (e.g., specimen obtained prior to the development of cellular immune response), co-morbid conditions that affect immune function, incorrect handling of the blood collection tubes following venipuncture, incorr ect performance of the assay, or other individual immunological variables. Heterophile antibodies or non-specific IFN-gamma production from other inflammatory conditions may mask specific responses to ESAT-6 or CFP-10 peptides.2)A positive QFT-Plus result should not be the sole or definitive basis for determining infection with M. tuberculosis. Incorrect performance of the assay may cause false-positive QFT-Plus results. A positive QFT-Plus result should be followed by further medical evaluation for active TB disease (e.g., Acid Fast Bacilli smear and culture, chest X-ray).3)While ESAT-6 and CFP-10 are absent from all BCG strains and from most known nontuberculous mycobacteria, it is possible that a positive QFT-Plus result may be due to infection by M. kansasii, M. szulgai, or M. marinum. If such infections are suspected, alternative tests should be performed.4)A false-negative QFT-Plus result can be caused by incorrect blood sample collection or improper handling of the specimen affecting lymphocyte function. Please refer to Specimen Collection and Handling section, page 17, for correct handling of the blood specimens. Delay in incubation may cause false negative or indeterminate results, and other technical parameters may affect ability to detect a significant IFN-gamma response.5)The effect of lymphocyte count on reliability of QFT-Plus results is unknown. Lymphocyte counts may vary over time for any individual person, and from person to person. The minimum number of lymphocytes required for a reliable test result has not been established and may also be variable.6)A positive QFT- Plus result can suggest and support the diagnosis of tuberculosis disease. ESAT- 6 and CFP-10 are present in M. tuberculosis, but infections by other mycobacteria, including M. kansasii, M. szulgai, and M.marinum may also cause positive results. Other diagnostic evaluations (e.g., AFB smear and culture, chest X-ray) besides QFT-Plus are needed to confirm tuberculosis disease.7)The predictive value of a negative QFT-Plus result in immunosuppressed persons has not been determined. [facility] [id number] 11:17:31* Test Item Value Reference Range Interpretation Comments POC glucose (test code = 27683-8) 84 mg/dL 65-100 Financial Aid Director Name: Fatuma Herrera ID: [id number] [facility] [id number] 08:01:57* Test Item Value Reference Range Interpretation Comments Sodium (test code = 2951-2) 141 135- 150 mEq/L Potassium (test code = 2823-3) 4.0 3.5- 5.0 mEq/L Chloride (test code = 2075-0) 103 98- 112 mEq/L CO2 (test code = 8-9) 26 mmol/L 24-31 Anion gap (test code = 59504-8) 12@ANIO 7- 15 mEq/L BUN (test code = 3094-0) 15 mg/dL 7-18 Creatinine (test code = 2160-0) 1.00 mg/dL 0.7-1.2 Glucose (test code = 2345-7) 94 mg/dL 65-100 Calcium (test code = 11153-1) 8.9 mg/dL 8.3-10.2 [place] MethodistEstimated [id number] 08:01:35* Test Item Value Reference Range Interpretation Comments Estimated GFR (test code = 5488) >=90 mL/min/1.73 m2 Catergory Units InterpretationG1 >=90 Normal or highG2 60-89 Mildly whyxxvawsL8y 45-59 Mildly to moderately ftepxtvsmG3n 30-44 Moderately to severely decreasedG4 15-29 Severely decreasedG5 <15 Kidney failureThe eGFR was calculated using the Chronic Kidney Disease Epidemiology Collaboration (CKD-EPI) equation. Interpretation is based on recommendations of the National Kidney Foundation-Kidney Disease Outcomes Quality Initiative (NKF-KDOQI) published in 2014. [facility] with platelet and [id number] 07:53:13* Test Item Value Reference Range Interpretation Comments WBC (test code = 41432-1) 6.0 4.2- 11.0 k/uL RBC (test code = 90920-3) 4.64 m/uL 4.04-5.86 HGB (test code = 718-7) 13.4 g/dL 13-17.3 HCT (test code = 4544-3) 39.0 % 34-45 MCV (test code = 787-2) 84.1 fL 80-98 MCH (test code = 785-6) 28.9 pg 27-34 MCHC (test code = 786-4) 34.4 g/dL 31.5-36.5 RDW - SD (test code = 35349-1) 35.6 fL 37-51 L MPV (test code = 36655-0) 8.9 fL 7.4-10.4 Platelet count (test code = 70854-6) 272 150- 400 k/uL Nucleated RBC (test code = 94898-4) 0.00 /100 WBC Neutrophils (test code = 43735-7) 56.6 % 36-66 Lymphocytes (test code = 60933-1) 33.1 % 24-44 Monocytes (test code = 72811-5) 7.8 % 0-6 H Eosinophils (test code = 40433-8) 1.7 % 0-6 Basophils (test code = 89188-6) 0.5 % 0-1.2 Immature granulocytes (test code = 43108-1) 0.3 % 0-1 Lab Interpretation (test code = 05280-6) Abnormal [facility] MethodistECG 12 [id number] 17:20:12* Test Item Value Reference Range Interpretation Comments Ventricular rate (test code = 253) 83 Atrial rate (test code = 255) 83 [place] interval (test code = 266) 152 QRSD interval (test code = 260) 86 QT interval (test code = 264) 370 QTC interval (test code = 265) 434 P axis 1 (test code = 267) 52 QRS axis 1 (test code = 268) -5 T wave axis (test code = 270) 21 EKG impression (test code = 273) Normal sinus rhythm-I nferior infarct , age undetermined-Abnormal ECG-In automated comparison with ECG of 07-JUN-2018 06:55,-Inferior infarct is now present- Pj Garberyphilis total [id number] 08:15:32* Test Item Value Reference Range Interpretation Comments Syphilis total antibody (test code = 6194) Non-reactive Non-reactiv e No serological evidence of syphilis infection. [facility] MethodistCreatine kinase, total (CPK)2020-03-18 06:15:58* Test Item Value Reference Range Interpretation Comments Creatine kinase (test code = 2157-6) 25 U/L 39-308 L Lab Interpretation (test code = 98127-5) [facility] [id number] 06:15:58* Test Item Value Reference Range Interpretation Comments Magnesium (test code = 13782-5) 1.80 mg/dL 1.6-2.6 [facility] [id number] 05:36:06* Test Item Value Reference Range Interpretation Comments WBC (test code = 66198-5) 9.0 4.2- 11.0 k/uL RBC (test code = 52112-5) 4.59 m/uL 4.04-5.86 HGB (test code = 718-7) 13.3 g/dL 13-17.3 HCT (test code = 4544-3) 38.4 % 34-45 MCV (test code = 787-2) 83.7 fL 80-98 MCH (test code = 785-6) 29.0 pg 27-34 MCHC (test code = 786-4) 34.6 g/dL 31.5-36.5 RDW - SD (test code = 26624-3) 35.7 fL 37-51 L MPV (test code = 02386-6) 9.0 fL 7.4-10.4 Platelet count (test code = 08847-0) 294 150- 400 k/uL Nucleated RBC (test code = 33914-5) 0.00 /100 WBC Lab Interpretation (test code = 23256-1) Abnormal [facility] Complete, (w Contrast, Strain and 3D if needed)2020-03-17 22:32:01* Test Item Value Reference Range Interpretation Comments Ao Root Diameter (test code = 6471426169) 3.06 cm AoV Area, Vmax (test code = 5113183827) 2.05 cm2 AoV Area, VTI (test code = 5158921649) 1.57 cm2 AoV Mean PG (test code = 8011034483) 6.45 mmHg AoV Peak PG (test code = 6511513856) 8.77 mmHg AoV Vmax (test code = 5824672307) 1.65 m/s AoV VTI (test code = 1501782713) 0.29 m BSA [place] (test code = 2151149971) 2.31 m2 BSA (test code = 3710676009) 2.24 m2 IVS,d (test code = 4021228431) 1.03 cm IVS/LVPW,2D (test code = 0519606914) 1.05 Left Atrium Dimension Anterior (test code = 5910336330) 3.72 cm LV,d (test code = 0466562351) 4.44 cm LV EF,2D (test code = 4731601449) 72.43 % LV EF,A4C (test code = 7040775407) 73.08 % [place],d A4C (test code = 3353731632) 8.34 cm Dmitry [place],s A4C (test code = 9488394387) 7.37 cm LV,s (test code = 1934418441) 2.89 cm LV SV,A4C (test code = 2063367375) 63.98 % LV Vol,d A4C (test code = 9307724745) 87.55 ml LV Vol,s A4C (test code = 5655860014) 23.57 ml LVOT area (test code = 7173705197) 2.75 cm2 LVOT Diam,S (test code = 0893976815) 1.87 cm LVOT Vmax (test code = 2611159677) 1.10 m/s LVOT VTI (test code = 3593975833) 0.15 m LVPWD,d (test code = 3178237779) 0.98 cm PV Pk Grad (test code = 6485114458) 6.76 mmHg PV VMAX (test code = 3101533994) 1.30 m/s RVOT Vmax (test code = 2044873687) 0.92 m/s MV E A ratio (test code = 5489165151) 0.89 AoV area i VTI BSA [place] (test code = 1561281971) 0.70 cm2/m2 BMI (test code = 8312193449) 30.65 kg/m2 E wave decelartion time (test code = 1843257328) 112.94 msec MV Peak A Ryan (test code = 3612740890) 0.91 m/s MV valve area p 1/2 method (test code = 2917795415) 6.72 cm2 MV Peak E Ryan (test code = 1404332775) 0.82 m/s MV stenosis pressure 1/2 time (test code = 0842411177) 32.75 ms AV LVOT peak gradient (test code = 4282093084) 4.88 mmHg Ao Root Diameter (test code = 8863284547) 3.06 cm LV SYS VOL (test code = 0149333744) 32.02 ml LV GUERRERO VOL (test code = 7109931779) 89.81 ml LA area s A4C (test code = 1998505649) 16.81 cm2 LV SI Teich 2D (test code = 4076858318) 25.75 ml/m2 LV SV Teich 2D (test code = 7866125179) 57.79 ml LV Vol s Teich PSAX (test code = 4105504348) 32.02 ml LVOT CI (test code = 7727616705) 1.71 l/min/m2 LVOT CO (test code = 7445918204) 3.83 l/min LVOT HR for LVOT CO (test code = 8250598018) 91.79 bpm LVOT SI (test code = 4249378710) 18.58 ml/m2 RVOT pk grad (test code = 2369746823) 3.40 mmHg BSA [place] (test code = 2901463637) 2.31 m2 AoV Vmn (test code = 5013799348) 1.21 IVS s 2D (test code = 1311910649) 1.66 LV FS Teich 2D (test code = 9750336504) 34.91 MV AE ratio (test code = 8408433124) 1.12 LV FS Cube 2D (test code = 1998941337) 34.91 LVOT Vmn (test code = 9151736505) 0.83 Pt Size (test code = 5661406648) 182.88 Pt Wt (test code = 5879690669) 102.51 Aov area Vmn (test code = 4925525647) 2.17 cm2 LVOT mean grad (test code = 6231413592) 2.93 mmHg MAX Pred HR (test code = 3062797442) 176.58 RVOT mean grad (test code = 9078249935) 2.31 mmHg RVOT Vmn (test code = 2344833543) 0.71 m/s RVOT VTI (test code = 5809197535) 0.23 m 85 of MPHR (test code = 9317534556) 150.10 AoV area I VMN bsa (test code = 9243632295) 0.97 cm2/m2 Calc MPHR (test code = 4314746531) 176.58 bpm IVS pct thck PLAX (test code = 4706704983) 60.94 % LV SI Cube 2D (test code = 1700198270) 28.34 ml/m2 LV SV Cube 2D (test code = 3653552806) 63.60 ml LV vol d cube 2D (test code = 5564849066) 87.82 ml LV vol s cube 2D (test code = 7479892315) 24.21 ml LVPW pct thck PLAX (test code = 7121308018) 47.94 % LVPW s PLAX (test code = 8819077010) 1.46 cm MV Decel slope (test code = 0598445247) 7.22 m/s2 Pred Exer Dur R1 (test code = 2720377771) 11.25 Pred METS R1 (test code = 4374166366) 11.49 LA Vol MOD A4C (test code = 3779630991) 41.88 ml Velocity Ratio (V1/V2) (test code = 4689) 0.67 m/s EF (test code = 1626116067) 64.35 % E/A ratio (test code = 2941401096) 0.90 YOEL (test code = YOEL) Left ventricular systolic function is normal. Left Ventricular ejection fraction is 65 - 70%. Spectral Doppler shows impaired relaxation pattern of left ventricular diastolic filling. No hemodynamically significant valvular abnormalities. [facility] [id number] 20:17:04Hm Interface, Radiology Results 03/17/2020 8:20 PM CDTEXAMINATION:EXAMINATION: CT ANGIOGRAM PE CHESTCLINICAL HISTORY: 44 years Male PE suspected intermediate prob positive D-dimerTECHNIQUE: Multiple CT angiographic images of the chest were obtained during intravenous administration of contrast. Multiple computerized reformatted images as well as 3-D volume rendered images were also obtained. Precontrast images of the chest were also obtained. CT imaging was performed with iterative reconstruction techniques and/or automated exposure control to reduce radiation dose. COMPARISON: None.FINDINGS:Lungs and airways: No acute airspace disease or suspicious pulmonary nodules. There is mild atelectasis in the dependent portions of both lower lobes.Pleura: No pleural effusion or pne umothorax.Mediastinum and lymph nodes: No lymphadenopathy. Cardiovascular: The h eart size is normal. No pericardial effusion.The caliber of the ascending, trans verse, and descending thoracic aorta is normal. The thoracic aorta is patent. Th ere is no evidence of dissection flap in the thoracic aorta.The pulmonary artery trunk, right main pulmonary artery, and left main pulmonary artery are within n ormal limits of size. No saddle embolus is identified. There is no evidence of r ight heart strain. No filling defect is identified within the central segmental opacified pulmonary arteries.Upper abdomen: No suspicious abnormalities.Bones: N o suspicious osseous lesions. Other: None.IMPRESSION:1.No acute abnormality iden tified in the chest.2.No evidence of pulmonary embolism.[facility]-[id number] [facility] Brain Wo Jabmdgjj6868-94-89 19:35:18Hm Interface, Radiology Results 03/17/2020 7:38 PM CDTEXAMINATION: MRI BRAIN WO CONTRASTCLINICAL HISTORY: headacheCOMPARISON: March 16, 2020Findings:No intracranial hemorrhage, acute ischemia, extra-axial fluid collections or parenchymal mass lesions. No hydrocephalus. No suspicious focal bone marrow lesions.Calcified cyst in the right parietal scalp.IMPRESSION:No acute intracranial abnormalities or mass lesions.[facility]-WPHYRRSHousjefferson cherry hill [facility] ([facility] QwythkiheOgujgbvc5934-14-74 16:35:49* Test Item Value Reference Range Interpretation Comments Troponin (test code = 57956-2) <0.006 0-0.04 In patients suspected of having a myocardial infarction, along with all other appropriate clinical measures and actions including ECG and other diagnostics as appropriate, measure Ultra TnI at 0 hrs and at 3 hrs.Myocardial infarction VERY LIKELYThe 0 hr TnI level is > 0.10 ng/mL Ernesto cardial infarction LIKELYThe 0 hr TnI level is > 0.04 ng/mL and 3 hr level is increased or decreased by at least 0.020 ng/mL Myocardi al infarction VERY UNLIKELYBoth the 0 hr and 3 hr TnI levels <= 0.04 ng/mL(within normal limits) OR 0 hr is > 0.04 ng/mL and 3 hr is increased OR decreased by less than 0.020 ng/mL [place] MethodistThyroid stimulating lybdppp9766-09-39 12:52:49* Test Item Value Reference Range Interpretation Comments TSH (test code = 3016-3) 0.60 0.27- 4.20 uIU/mL [place] MethodistB natriuretic xbtntgb3676-42-92 06:53:02* Test Item Value Reference Range Interpretation Comments BNP (test code = 65980-1) 23 pg/mL 0-100 [place] MethodistLipid kxuri3868-56-30 06:52:29* Test Item Value Reference Range Interpretation Comments Cholesterol (test code = 2093-3) 159 mg/dL 0-199 Triglycerides (test code = 2571-8) 48 mg/dL 0-149 HDL cholesterol (test code = 2085-9) 51 mg/dL 40-9999 LDL cholesterol (test code = 2089-1) 98 mg/dL 0-99 Result obtained by direct LDL measurement Lipid panel interpretation (test code = 70171-0) See below Total Cholesterol (mg/dL) LDL Cholesterol (mg/dL) <200 Desirable <100 Optimal 200-239 Borderline-high 100-129 Near or above optimal >=240 High 130-159 Borderline- high 160-189 High >=190 Very highHDL Cholesterol (mg/dL) Triglycerides (mg/dL) <40 Low <150 Normal >=60 High 150-199 Borderline-high 200-499 High >=500 Very high Risk Catergories that modify LDL goals.Risk Catergories LDL goal (mg/dL)CHD and CHD risk equivalent <100 (10-year risk >20%)Multiple (2+) risk factors <130 (10-year risk =<20%)0-1 risk factors <160 (<10-year risk) Defining levels of lipids in metabolic syndromeTriglycerides >=150 mg/dLHDL Cholesterol Men <40 mg/dL Women <50 mg/dL Non-HDL cholesterol is a second target for therapy in personswith high triglycerides (>=200 mg/dL) [place] MethodistHemoglobin [id number] 06:41:43* Test Item Value Reference Range Interpretation Comments Hemoglobin A1C (test code = 74414-5) 5.5 % 4-5.6 HbA1c cutoffs for diagnosing diabetes:4.0% - 5.6% = normal5.7% - 6.4% = increased risk for diabetes (prediabetes)9>=6.5% = bepacgks8Ecfgw for glycemic control (ADA 2016)< 7.0% Target for non adults with diabetes. More or less stringent targets may be appropriate for individual patients. <7.5% Target for Children and adolescents with type 1 diabetes. [place] PqdiqsnlaO-gevkb8424-76-16 06:39:13* Test Item Value Reference Range Interpretation Comments D-dimer (test code = 15610-0) 0.47 0.00- 0.40 ug/mL FEU H Units are ug/ml Fibrinogen Equivalent Unit.When combined with low clinical probability, D-dimer results of less than 0.5 ug/ml FEU have a good negative predictive value in excluding PE or DVT. For D-dimer results greater than 0.5 ug/ml FEU further testing is indicated if PE or DVT is suspected clinically.Elevated D-dimer results have been reported in DVT, PE, and DIC cases and may indicate the pre sence of a clot. D-dimer results may be elevated due to old age, , inflammatory diseases, trauma, post-operative states, sepsis, and malignancies. Lab Interpretation (test code = 36227-6) Abnormal [place] [facility] of abuse smtwqk0253-31-55 03:47:02* Test Item Value Reference Range Interpretation Comments Amphetamine screen, urine (test code = 3349-8) Negative Barbiturate screen, urine (test code = 3377-9) Negative Benzodiazepine screen, urine (test code = 3390-2) Negative Cocaine screen, urine (test code = 3397-7) Negative Methadone metabolite (EDDP), urine (test code = 32520-8) Negative Opiates screen, urine (test code = 3879-4) Positive A Oxycodone screen, urine (test code = 22700-2) Negative Phencyclidine screen, urine (test code = 3936-2) Negative Cannabinoid screen, urine (test code = 3427-2) Negative Drug screen minimum concentration of detectabilityAmphetamines 1000 ng/mLBarbiturates 200 ng/mLBenzodiazepines 300 ng/mLCocaine 300 ng/mLMethadone 300 ng/mLOpiates 300 ng/mLOxycodone 300 ng/mLPhencyclidine 25 ng/mLCannabinoids 50 ng/mLTricyclics 1000 ng/mLResults are from screening tests and should only be used for medical evaluation. Drug testing for legal purposes requires definitive (or confirmatory) testing methods, which are available upon request. Contact the laboratory if definitive testing is required. Lab Interpretation (test code = 98833-9) Abnormal [facility] MethodistUrine rolcvxq7264-64-73 03:36:50* Test Item Value Reference Range Interpretation Comments Urine culture (test code = 4172210) SEE COMMENT Bacteriuria screen negative. [place] MethodistUrinalysis screen and microscopy, with reflex to culture 2020-03-17 03:36:41* Test Item Value Reference Range Interpretation Comments Specimen site (test code = 6405029) Clean catch Color, UA (test code = 5778-6) Yellow Appearance, UA (test code = 5767-9) Clear Specific gravity, UA (test code = 5811-5) 1.040 1.001-1.035 H pH, UA (test code = 5803-2) 5.0 5.0-8.5 Protein, UA (test code = 10146-7) Negative Negative Glucose, UA (test code = 45897-5) Negative Negative Ketones, UA (test code = 2514-8) 2+ Negative A Bilirubin, UA (test code = 5770-3) Negative Negative Blood, UA (test code = 5794-3) Negative Negative Nitrite, UA (test code = 5802-4) Negative Negative Urobilinogen, UA (test code = 56028-8) 2.0 <2.0 A Leukocyte esterase, UA (test code = 5799-2) Negative Negative WBC, UA (test code = 5821-4) None seen 0- 1 /HPF RBC, UA (test code = 23807-2) 1 0- 5 /HPF Bacteria, UA (test code = 85185-7) None seen None seen Yeast, UA (test code = 15200-8) None seen Yeast with pseudohyphae, UA (test code = 60131-5) None seen Lab Interpretation (test code = 58757-1) Abnormal [place] MethodistLactic acid level, SEPSIS - Now and repeat 2x every 3 hours 2020-03-17 03:08:42* Test Item Value Reference Range Interpretation Comments Lactic acid (test code = 09794-7) 1.0 mmol/L 0.5-2.2 [place] MethodistCTA Head W Wo Nuccnyei6724-07-77 22:38:59Hm Interface, Radiology Results 03/16/2020 10:42 PM CDTEXAMINATION: CT ANGIOGRAM HEAD W WO CONTRASTCLINICAL HISTORY: Headache acute severe worst INGRAM of life. Evaluate for recent artery abnormality.COMPARISON: CT brain from earlier today.TECHNIQUE: Imaging of the intracranial circulation was obtained from the skull base to the vertex during the arterial phase of enhancement. Postproc essing was performed with MIP multiplanar and 3D reconstructed images. CT scans are performed using radiation dose reduction techniques. Technical factors are evaluated and adjusted to ensure appropriate moderation of exposure. Automated d ose management technology is applied to adjust radiation exposure while achievin g a diagnostic quality image.FINDINGS:The study was completed emergently after h ours at 2235 hours. There is no evidence of significant stenosis in the major ar teries in the head. There is flow in the anterior and left posterior communicati ng arteries. The distal right vertebral artery is dominant. I do not see definit e evidence of aneurysm or arterial venous malformation. There is no evidence of artery dissection. There is good enhancement within the dural venous sinuses wit h dominant venous drainage towards the right. The study was not performed for go od evaluation of the brain.IMPRESSION:No abnormality in the intracranial arterie s to account for the patient's headaches.HMSL-[id number] MethodistAlcohol level, ghefd0101-78-58 22:10:53* Test Item Value Reference Range Interpretation Comments Alcohol percent (test code = 5643-2) None Detected % Normal None DetectedLegal Intoxication in [place] 80 mg/dL (0.08%)Toxic Concentration 200 mg/dL (0.2%)Potentially Fatal 350-500 mg/dL (0.35%-0.5%) [place] MethodistCT Head Wo Griyjvln0693-77-95 18:04:14Hm Interface, Radiology Results 03/16/2020 6:07 PM CDTEXAMINATION: CT HEAD WO CONTRASTCLINICAL HISTORY: headacheCOMPARISON: CT of the head dated June 07, 2018FINDINGS: There is no evidence of acute hemorrhage, mass lesion, or midline shift. The gaines-white matter differentiation is preserved with no evidence of acute territorial infarction. Ventricles, sulci, and cisterns are age-ap propriate in size and configuration. There is no extra-axial fluid collection.Th ere is stable partially calcified subcutaneous sebaceous cyst in the right parie yuli scalp region.Visualized paranasal sinuses and mastoid air cells are clear. B ones, orbits, and soft tissues are unremarkableAll CT images were acquired using low-dose technique with automated exposure control.IMPRESSION: No acute intracr anial hemorrhage or mass effect.[facility]-[id number] MethodistECG ED Preliminary Interpretation - Not an Yrpue6298-88-39 17:41:22* Test Item Value Reference Range Interpretation Comments YOEL (test code = YOEL) Khanh Velasquez MD 03/17 1:42 [facility] Preliminary Interpretation - Not an OrderPerformed by: Khanh Velasquez MDAuthorized by: Khanh Velasquez MD ECG reviewed by ED Physician in the abse nce of a scanning manager: yes Interpretation: Interpretation: abnormal Rate: ECG rate: 83 ECG rate assessment: normal Rhythm: Rhythm: sinus rhythm QRS: QRS axis: Normal QRS intervals: NormalST segments: ST segments: NormalT waves: T waves: non-specific T waves comment: Lead III, V3 and aVF Lab Interpretation (test code = 52647-0) Abnormal [place] MethodistComprehensive metabolic ddizb3656-37-73 17:28:58* Test Item Value Reference Range Interpretation Comments Sodium (test code = 2951-2) 140 135- 150 mEq/L Potassium (test code = 2823-3) 3.9 3.5- 5.0 mEq/L Chloride (test code = 2075-0) 102 98- 112 mEq/L CO2 (test code = 2027-9) 25 mmol/L 24-31 Anion gap (test code = 97503-2) 13@ANIO 7- 15 mEq/L BUN (test code = 3094-0) 16 mg/dL 7-18 Creatinine (test code = 2160-0) 1.00 mg/dL 0.7-1.2 Glucose (test code = 2345-7) 91 mg/dL 65-100 Calcium (test code = 54413-8) 9.0 mg/dL 8.3-10.2 Protein (test code = 2885-2) 6.8 g/dL 6.3-8.3 Albumin (test code = 1751-7) 3.7 g/dL 3.5-5 A/G ratio (test code = 1759-0) 1.2 0.7-3.8 Alkaline phosphatase (test code = 6768-6) 110 U/L 0-129 AST (test code = 1920-8) 15 U/L 10-50 ALT (test code = 1742-6) 23 U/L 5-50 Total bilirubin (test code = 1974-2) 0.9 mg/dL 0.2-1.2 [facility] MethodistLipase asakj6974-84-32 17:28:58* Test Item Value Reference Range Interpretation Comments Lipase (test code = 3040-3) 14 U/L 13-60 [facility] MethodistPartial thromboplastin time, ofqvstroj9630-76-01 17:24:34* Test Item Value Reference Range Interpretation Comments PTT (test code = 3173-2) 28.6 23.0- 36.0 sec P TT therapeutic range for unfractionated heparin is61.0-112.0 seconds which corresponds to Anti-Xa0.3-0.7 U/ml. Pj MethodistProthrombin time with [id number] 17:23:46* Test Item Value Reference Range Interpretation Comments Prothrombin time (test code = 5902-2) 13.6 11.5- 14.5 sec INR (test code = 52032-8) 1.04 Fo r patients on anticoagulant therapy, reference ranges below:Indication: INR ValueTreatment of Venous Thrombosis, 2.0-3.0pulmonary emboli, or prophylaxisof a venous thrombosis, or systemic emboli.High dose, high risk patients 3.0-4.5with mechanical valves.NOTE: INR values over 3.0 are sometimes associated withgastrointestinal hemorrhage, especially values over 4.0. [facility] MethodistXR Chest 1 Vw Lelgezxg7810-23-13 16:51:09Hm Interface, Radiology Results 03/16/2020 4:54 PM CDTEXAMINATION: XR CHEST 1 VW PORTABLECLINICAL HISTORY: SOBCOMPARISON: No priorIMPRESSION:Lines: NoneLungs and pleura: No consolidations. No pleural effusion or pneumothorax. Lingular subsegmental atelectasis.Heart and mediastinum: Normal appearance of c ardiomediastinal silhouette. Bones: Old posttraumatic deformity of the right cla vicle.[id number] [place] MethodistComprehensive Metabolic Pxwzc1014-02-90 20:00:00* Test Item Value Reference Range Interpretation Comments Sodium (test code = 2951-2) 140 mmol/L 136-145 Potassium (test code = 2823-3) 4.0 mmol/L 3.5-5.1 Chloride (test code = 2075-0) 105 mmol/L 98-107 CO2 (test code = 59842627) 22 mmol/L 21-31 Glucose (test code = 68209122) 117 mg/dL 70-110 H Calcium (test code = 94656428) 9.8 mg/dL 8.6-10.3 Urea Nitrogen (test code = 28986520) 19.0 mg/dL 7-25 Creatinine (test code = 12379475) 1.0 mg/dL 0.7-1.3 Alkaline Phosphatase (test code = 79702669) 100 U/L 34-104 ALT (test code = 13151011) 19 U/L 7-52 AST (test code = 04272648) 12 U/L 13-39 L Total Protein (test code = 2885-2) 6.4 g/dL 6-8.3 GFR, Estimated (test code = 23320364) 82 >=90 mL/min/1.73 m2 L Albumin (test code = 82335-2) 4.1 g/dL 4.2-5.5 L Anion Gap (test code = 48830965) 13 mmol/L 03-17 Lab Interpretation (test code = 72057-9) Abnormal [place] [address] LEAD [id number] 19:39:3212 LEAD EKG FOR [facility] Test Date: [id number] Name: CARLO MARTINI Department: 5520Patient ID: [id number] Room: Gender: M [place] Operator: [id number]: 1975 Requested By: LIA DOMINGUEZ Order Number: [id number] Reading MD: Randall Contreras M.D. MeasurementsIntervals [place] Rate: 95 P: 49PR: 160 QRS: 19QRSD: 93 T: 14QT: 338 QTc: 427 Interpretive StatementsSINUS RHYTHMNONSPECIFIC T-WAVE ABNORMALITYReviewed by Electronically Signed On 03-14-2020 19:39:31 CDT by Randall Contreras M.D.[facility] 2020-03-14 17:17:00* Test Item Value Reference Range Interpretation Comments Magnesium (test code = 82054275) 2.0 mg/dL 1.9-2.7 Lab Interpretation (test code = 22668-3) Normal [facility]/Awtb9796-09-53 16:55:00* Test Item Value Reference Range Interpretation Comments WBC (test code = 6690-2) 15.0 K/uL 4.5-12 H RBC (test code = 789-8) 5.20 4.60- 6.20 M/uL Hemoglobin (test code = 718-7) 15.1 g/dL 14-18 Hematocrit (test code = 4544-3) 42.7 % 40-54 MCV (test code = 787-2) 82.1 fL 82-92 MCH (test code = 785-6) 29.0 pg 27-31 MCHC (test code = 786-4) 35.4 g/dL 32-36 RDW (test code = 28995-0) 35.5 fL 35.1-43.9 Platelet (test code = 777-3) 338 K/uL 150-400 Mean Platelet Volume (test code = 37915-0) 9.2 fL 9.4-12.4 L Percent NRBC (test code = 84147248) 0.0 % Neutrophil (test code = 770-8) 84.3 % 34-67.9 H Lymphs (test code = 736-9) 8.5 % 21.8-50 L Monocytes (test code = 5905-5) 6.7 % 5.3-12 Eos (test code = 713-8) 0.1 % 0.8-5 L Basos (test code = 706-2) 0.1 % 0.2-1.2 L Immature Granulocytes (test code = 69171052) 0.3 % 0-0.5 Neutrophils (Absolute) (test code = 22592008) 12.64 K/uL 1.78-5.3 6 H Lymphs (Absolute) (test code = 77572193) 1.27 K/uL 1.32-3.57 L Monocytes(Absolute) (test code = 14728667) 1.00 K/uL 0.3-0.82 H Eos (Absolute) (test code = 49771476) 0.01 K/uL 0.04-0.54 L Baso (Absolute) (test code = 31489602) 0.02 K/uL 0.01-0.08 Immature Grans (Abs) (test code = 15683837) 0.04 K/uL 0-0.03 H Absolute NRBC (test code = 81402777) 0.00 K/uL Lab Interpretation (test code = 84893-8) Abnormal [facility] BMP POC docked krqksj4225-49-04 16:44:00* Test Item Value Reference Range Interpretation Comments Sodium POC (test code = 90634369) 139 mmol/L 136-145 Potassium POC (test code = 93897782) 5.0 mmol/L 3.5-5.1 Chloride POC (test code = 88736866) 104 mmol/L 98-107 TCO2 POC (test code = 16178512) 27 mmol/L 21-32 Physician Notified Urea Nitrogen POC (test code = 22352240) 23 mg/dL 7-18 H Glucose POC (test code = 36194640) 110 mg/dL 74-106 H Hemoglobin POC (test code = 44649616) 15.3 g/dL 12-16 Hematocrit POC (test code = 21709398) 45.0 % 37-47 Lab Interpretation (test code = 13157-8) Abnormal [facility] CREATININE POC docked fjxyzt0731-07-95 16:42:00* Test Item Value Reference Range Interpretation Comments Creatinine POC (test code = 18514547) 0.9 mg/dL 0.6-1.3 Physician Notified GFR, Estimated (test code = 92389086) >90 >=90 mL/min/1.73 m2 Lab Interpretation (test code = 22294-8) Normal [facility] HEAD W/O [id number] 21:11:39IMPRESSION: 1. No intracranial abnormalities.2. Nonspecific small nodular right parietal scalp nodular subcutaneouslesions with calcifications may represent a subcutaneous hemangioma.Differential considerations include epidermal inclusion cysts. This canbe correlated with physical exam. If the report is "FINALIZED" it indicates that the attending/staffradiologist has reviewed the images and agrees with the resident'sinterpretation. Dictated By: Chan Frazier MD, 03/13/2020 8:46 PM I have reviewed the study and agree with the findings in this report. Signed By: Tigre Moser MD, 03/13/2020 9:11 PM Interface, Rad/Mammog In - 03/13/2020 9:16 PM CDTExam : Head CT without contrastHistory: Headache, acute, normal neuro exam. Headache and vomiting for 2weeks.Comparison studies: None. Technique: Axial scans were obtained from skull base to the vertex.Coronal and sagittal recon structions obtained from the axial data. IV Contrast: None Complications: NoneRa diation Dose: Total DLP: 936 mGy*cm.Estimated Effective Dose: DLP x 0.0021 mSvFI NDINGS:Scalp/Skull:A 1.2 x 1.2 x 1.3 cm (SI x AP x Trans) nodular hyperdense [place] bcutaneouslesion in the right parietal scalp is associated with calcification.Si milar smaller adjacent subcutaneous satellite lesion withcalcification is presen t. These lesions appear to connect with localscalp veins. Otherwise, unremarkabl e.Brain sulci: Appropriate for patient's age.Ventricles: Normal in size and conf iguration.No hydrocephalus.Extra-axial spaces:No masses or fluid collections.Par enchyma: No abnormal densities. No masses, hemorrhage or acute or chronic cortic al insultsDural sinuses: No abnormal densities.Sellar/Suprasellar region: Intac t.Skull base and Craniocervical junction: Intact .Incidental findings: None.IMPR ESSIONIMPRESSION:1. No intracranial abnormalities.2. Nonspecific small nodular right parietal scalp nodular subcutaneouslesions with calcifications may repres ent a subcutaneous hemangioma.Differential considerations include epidermal incl usion cysts. This canbe correlated with physical exam.If the report is "FINALIZE D" it indicates that the attending/staffradiologist has reviewed the images and agrees with the resident'sinterpretation.Dictated By: Chan Frazier MD, 03/13/2020 8 :46 PMI have reviewed the study and agree with the findings in this report.Fannie d By: Tigre Moser MD, 03/13/2020 9:11 PMSamaritan Healthcareprehensive Metabolic [id number] 12:27:30* Test Item Value Reference Range Interpretation Comments Sodium Level (test code = Sodium Level) 139.0 mmol/L 135.0-145.0 Potassium Level (test code = Potassium Level) 4.4 mmol/L 3.5-5.1 Chloride Level (test code = Chloride Level) 104 mmol/L 98-105 CO2 (test code = CO2) 25 mmol/L 22-29 Anion Gap (test code = Anion Gap) 10 mmol/L 7-16 BUN (test code = BUN) 15.10 mg/dL 6.00-20.00 Creatinine Level (test code = Creatinine Level) 1.10 mg/dL 0.70-1 .20 BUN/Creat Ratio (test code = BUN/Creat Ratio) 14 N Glucose Level (test code = Glucose Level) 99 mg/dL 70-115 Calcium Level (test code = Calcium Level) 9.6 mg/dL 8.3-10.5 Alk Phos (test code = Alk Phos) 107 U/L 40-129 Bilirubin Total (test code = Bilirubin Total) 0.3 mg/dL 0.1-0.9 Albumin Level (test code = Albumin Level) 4.2 g/dL 3.5-5.2 Protein Total (test code = Protein Total) 6.7 g/dL 6.4-8.3 ALT (test code = ALT) 23 U/L 1-41 AST (test code = AST) 18 U/L 1-40 Globulin (test code = Globulin) 2.5 g/dL 2.9-3.1 L A/G Ratio (test code = A/G Ratio) 1.7 ratio N Comprehensive Metabolic Sasup6179-84-01 12:27:30* Test Item Value Reference Range Interpretation Comments Sodium Level (test code = Sodium Level) 139.0 mmol/L 135.0-145.0 Potassium Level (test code = Potassium Level) 4.4 mmol/L 3.5-5.1 Chloride Level (test code = Chloride Level) 104 mmol/L 98-105 CO2 (test code = CO2) 25 mmol/L 22-29 Anion Gap (test code = Anion Gap) 10 mmol/L 7-16 BUN (test code = BUN) 15.10 mg/dL 6.00-20.00 Creatinine Level (test code = Creatinine Level) 1.10 mg/dL 0.70-1 .20 BUN/Creat Ratio (test code = BUN/Creat Ratio) 14 N Glucose Level (test code = Glucose Level) 99 mg/dL 70-115 Calcium Level (test code = Calcium Level) 9.6 mg/dL 8.3-10.5 Alk Phos (test code = Alk Phos) 107 U/L 40-129 Bilirubin Total (test code = Bilirubin Total) 0.3 mg/dL 0.1-0.9 Albumin Level (test code = Albumin Level) 4.2 g/dL 3.5-5.2 Protein Total (test code = Protein Total) 6.7 g/dL 6.4-8.3 ALT (test code = ALT) 23 U/L 1-41 AST (test code = AST) 18 U/L 1-40 Globulin (test code = Globulin) 2.5 g/dL 2.9-3.1 L A/G Ratio (test code = A/G Ratio) 1.7 ratio N eGFR AA (test code = eGFR AA) >60 mL/min/1.73 m2 N eGFR (estimated Glomerular Filtration Rate) is an estimated value, calculated from the patient's serum creatinine using the MDRD equation. It is NOT the patient's actual GFR. The eGFR provides a more clinically useful measure of kidney disease than serum creatinine alone.This calculation takes sex and race into account, if the information is provided. If the race is not provided, and the patient is -Portuguese, multiply by 1.212. If sex is not provided, and the patient is female, multiply by 0.742. Results for patients <18 years of age have not been validated by the MDRD study and should be interpreted with caution. eGFR Result Interpretation:eGFR > or = 60 is in the Normal RangeeGFR < 60 may mean kidney diseaseeGFR < 15 may mean kidney failure Ranges recommended by the National Kidney Foundation, http://nkdep.nih.gov Alcohol Bbrao2530-77-67 12:27:30* Test Item Value Reference Range Interpretation Comments Ethanol Level (test code = Ethanol Level) <0.00 g/dL 0.00-0.01 Intoxicated 0.080 g/dL or more Ethanol Inst (test code = Ethanol Inst) <0 N Comprehensive Metabolic [id number] 12:27:30* Test Item Value Reference Range Interpretation Comments Sodium Level (test code = Sodium Level) 139.0 mmol/L 135.0-145.0 Potassium Level (test code = Potassium Level) 4.4 mmol/L 3.5-5.1 Chloride Level (test code = Chloride Level) 104 mmol/L 98-105 CO2 (test code = CO2) 25 mmol/L 22-29 Anion Gap (test code = Anion Gap) 10 mmol/L 7-16 BUN (test code = BUN) 15.10 mg/dL 6.00-20.00 Creatinine Level (test code = Creatinine Level) 1.10 mg/dL 0.70-1 .20 BUN/Creat Ratio (test code = BUN/Creat Ratio) 14 N Glucose Level (test code = Glucose Level) 99 mg/dL 70-115 Calcium Level (test code = Calcium Level) 9.6 mg/dL 8.3-10.5 Alk Phos (test code = Alk Phos) 107 U/L 40-129 Bilirubin Total (test code = Bilirubin Total) 0.3 mg/dL 0.1-0.9 Albumin Level (test code = Albumin Level) 4.2 g/dL 3.5-5.2 Protein Total (test code = Protein Total) 6.7 g/dL 6.4-8.3 ALT (test code = ALT) 23 U/L 1-41 AST (test code = AST) 18 U/L 1-40 Globulin (test code = Globulin) 2.5 g/dL 2.9-3.1 L A/G Ratio (test code = A/G Ratio) 1.7 ratio N eGFR AA (test code = eGFR AA) >60 mL/min/1.73 m2 N eGFR (estimated Glomerular Filtration Rate) is an estimated value, calculated from the patient's serum creatinine using the MDRD equation. It is NOT the patient's actual GFR. The eGFR provides a more clinically useful measure of kidney disease than serum creatinine alone.This calculation takes sex and race into account, if the information is provided. If the race is not provided, and the patient is -Portuguese, multiply by 1.212. If sex is not provided, and the patient is female, multiply by 0.742. Results for patients <18 years of age have not been validated by the MDRD study and should be interpreted with caution. eGFR Result Interpretation:eGFR > or = 60 is in the Normal RangeeGFR < 60 may mean kidney diseaseeGFR < 15 may mean kidney failure Ranges recommended by the National Kidney Foundation, http://nkdep.nih.gov eGFR Non-AA (test code = eGFR Non-AA) >60.00 mL/min/1.73 m2 N eGFR (estimated Glomerular Filtration Rate) is an estimated value, calculated from the patient's serum creatinine using the MDRD equation. It is NOT the patient's actual GFR. The eGFR provides a more clinically useful measure of kidney disease than serum creatinine alone.This calculation takes sex and race into account, if the information is provided. If the race is not provided, and the patient is -Portuguese, multiply by 1.212. If sex is not provided, and the patient is female, multiply by 0.742. Results for patients <18 years of age have not been validated by the MDRD study and should be interpreted with caution. eGFR Result Interpretation:eGFR > or = 60 is in the Normal RangeeGFR < 60 may mean kidney diseaseeGFR < 15 may mean kidney failure Ranges recommended by the National Kidney Foundation, http://nkdep.nih.gov IG [id number] 12:06:55* Test Item Value Reference Range Interpretation Comments IG (test code = IG) 0.3 % 0.0-5.0 IG Abs (test code = IG Abs) 0 x10 N Complete Blood Count with [id number] 12:06:54* Test Item Value Reference Range Interpretation Comments WBC (test code = WBC) 11.4 x10 4.4-10.5 H RBC (test code = RBC) 5.26 x10 4.10-5.70 Hgb (test code = Hgb) 15.2 g/dL 13.4-17.4 MCV (test code = MCV) 85.60 fL 80.00-100.00 Hct (test code = Hct) 45.0 % 38.7-52.0 MCHC (test code = MCHC) 33.80 g/dL 32.00-37.50 RDW CV (test code = RDW CV) 11.9 % 11.5-14.5 MCH (test code = MCH) 28.9 pg 27.0-32.5 Platelets (test code = Platelets) 289.0 x10 140.0-440.0 MPV (test code = MPV) 8.9 fL N Slide Review (test code = Slide Review) Auto Auto Result created by [email or web address] nRBC (test code = nRBC) 0 N NRBC Abs (test code = NRBC Abs) 0.00 x10 N IPF (test code = IPF) 0 % N Automated [id number] 12:06:54* Test Item Value Reference Range Interpretation Comments Neutro Auto (test code = Neutro Auto) 84.2 % 36.0-70.0 H Lymph Auto (test code = Lymph Auto) 9.9 % 12.0-44.0 L [place] Auto (test code = [place] Auto) 4.8 % 0.0-11.0 Eos, Auto (test code = Eos, Auto) 0.4 % 0.0-7.0 Basophil Auto (test code = Basophil Auto) 0.4 % 0.0-2.0 Neutro Absolute (test code = Neutro Absolute) 9.6 x10 1.6-7.4 H Lymph Absolute (test code = Lymph Absolute) 1.13 x10 .50-4.60 [place] Absolute (test code = [place] Absolute) .55 x10 .00-1.20 Eos Absolute (test code = Eos Absolute) 0.05 x10 0.00-0.74 Baso Absolute (test code = Baso Absolute) 0.04 x10 0.00-0.21
--- OUTSIDE RECORDS SUMMARY | 2020-03-27 18:05 | XMS REPORT | Clinical Summary ---
Author Author [facility] Organization [facility] Address Unknown Phone Unavailable Care Team Providers Care Rig Welder Name Role Phone PCP Unavailable Allergies No Known Allergies Medications End Date Status Medication Sig Dispensed Refills Start Date Active acetaminophen (TYLENOL) Take 1 tablet 30 tablet 0 500 mg tabletIndications: by mouth 8 Thrombosed external every 6 hours hemorrhoid, Internal as needed for hemorrhoid Pain. Active levETIRAcetam (KEPPRA) Take 1 tablet 60 tablet 0 0 500 mg tabletIndications: by mouth 2 0 Acute intractable times daily. headache, unspecified headache type Active Problems Problem Noted Date Hemorrhoids Thrombosed external hemorrhoid Internal hemorrhoid Acute intractable headache Convulsions Seizures Pain Encounters Care Team Description Date Type Specialty Jenna Burns MD Seizures; Pain 03/14/2020 Emergency Emergency Medicine Jenna Burns MD No Show 03/14/2020 Hospital Radiology Encounter Lia Dominguez MD Haddock, Alison, MD Tension headache (Primary Dx); Acute intractable headache, unspecified headache type; Convulsions, unspecified convulsion type; Leukocytosis, unspecified type 03/14/2020 Emergency Emergency Medicine Stalin Zuniga MD Acute intractable headache, unspecified headache type (Primary Dx) 03/13/2020 Emergency Emergency Medicine - 03/14/2020 after 03/27/2019 Social History Date Tobacco Use Types Packs/Day Years Used Never Smoker Smokeless Tobacco: Never Used Drinks/Week oz/Week Comments Alcohol Use No Sex Assigned at Date Recorded Not on file Industry Job Start Date Occupation Not on file Not on file Not on file Travel End Travel History Travel Start No recent travel history available. Date Recorded COVID-19 Exposure Response 03/14/2020 9:13 PM CDT In the last month, have you been in contact with No / Unsure someone who was confirmed or suspected to have Coronavirus / COVID-19? Last Filed Vital Signs Reading Time Taken Comments Vital Sign 147/99 03/14/2020 9:15 PM CDT Blood Pressure 99 03/14/2020 9:15 PM CDT Pulse 36.8 C (98.2 F) 03/14/2020 9:15 PM CDT Temperature 19 03/14/2020 9:15 PM CDT Respiratory Rate 96% 03/14/2020 9:15 PM CDT Oxygen Saturation - - Inhaled Oxygen Concentration - - Weight - - Height - - Body Mass Index Plan of Treatment Health Maintenance Due Date Last Done Comments IMM Influenza Seasonal 08/02/2020 Oct to December (>/= 19 yrs) Procedures Comments Procedure Name Priority Date/Time Associated Diag nosis ECHG EKG PROC 12 LEAD Routine 03/14/2020 EKG; TRACING ONLY 6:06 PM CDT BMP POC Routine 03/14/2020 4:39 PM CDT CREATININE POC Routine 03/14/2020 4:38 PM CDT COMPREHENSIVE METABOLIC Add-on 03/14/2020 PANEL 4:29 PM CDT CBC STAT 03/14/2020 4:29 PM CDT MAGNESIUM STAT 03/14/2020 4:29 PM CDT CBC/DIFF STAT 03/14/2020 4:29 PM CDT CREATININE POC Routine 03/13/2020 10:02 PM CDT CBC STAT 03/13/2020 9:56 PM CDT CBC/DIFF STAT 03/13/2020 9:56 PM CDT CONSULT CLINICAL CASE STAT 03/13/2020 MANAGEMENT (RN/SW) 9:[address] HEAD W/O CONTRAST STAT 03/13/2020 Acute int ractable 8:23 PM CDT headache, unspecified headache type after 03/27/2019 Results * 12 LEAD EKG (03/14/2020 6:06 PM CDT) 12 LEAD EKG FOR [facility] Test Date: 2020-03-14 Pat Name: CARLO MARTINI Department: 5520 Room: Gender: Janet Barn Boss: [id number] : 1975 Requested By: LIA DOMINGUEZ Order Number: [id number] Reading MD: Randall Contreras M.D. Measurements Intervals [place] Rate: 95 P: 49 [place]: 160 QRS: 19 QRSD: 93 T: 14 QT: 338 QTc: 427 Interpretive Statements SINUS RHYTHM NONSPECIFIC T-WAVE ABNORMALITY Reviewed by Electronically Signed On 03-14-2020 19:39:31 CDT by Randall Contreras M.D. Specimen Performing Organization Address [facility] one Number [facility] * POCT BMP POC docked device (03/14/2020 4:39 PM CDT) Sodium POC 139 136 - 145 mmol/L [facility] Potassium POC 5.0 3.5 - 5.1 mmol/L [facility] Chloride POC 104 98 - 107 mmol/L [facility] TCO2 POC 27Comment: Physician Notified 21 - 32 mmol/L [facility] Urea Nitrogen 23 (H) 7 - 18 mg/dL [facility] Glucose POC 110 (H) 74 - 106 mg/dL [facility] Hemoglobin POC 15.3 12 - 16 g/dL [facility] Hematocrit POC 45.0 37.0 - 47.0 % [facility] Specimen Blood, venous Performing Organization Address [facility] one Number [facility] [address] [place] [address] * POCT CREATININE POC docked device (03/14/2020 4:38 PM CDT) Only the most recent of 2 results within the time period is included. Creatinine POC 0.9Comment: Physician Notified 0.6 - 1.3 mg/dL [facility] GFR, Estimated >90 >=90 mL/min/1.73 m2 [facility] Specimen Blood, venous Performing Organization Address [facility] one Number [facility] [address] [place] [address] * CBC/Diff (03/14/2020 4:29 PM CDT) Only the most recent of 2 results within the time period is included. WBC 15.0 (H) 4.5 - 12.0 K/uL [facility] RBC 5.20 4.60 - 6.20 M/uL [facility] Hemoglobin 15.1 14.0 - 18.0 g/dL [facility] Hematocrit 42.7 40.0 - 54.0 % [facility] MCV 82.1 82.0 - 92.0 fL [facility] MCH 29.0 27.0 - 31.0 pg [facility] MCHC 35.4 32.0 - 36.0 g/dL [facility] RDW 35.5 35.1 - 43.9 fL [facility] Platelet 338 150 - 400 K/uL [facility] Mean Platelet 9.2 (L) 9.4 - 12.4 fL [facility] Volume [facility] Percent NRBC 0.0 % [facility] Neutrophil 84.3 (H) 34.0 - 67.9 % [facility] Lymphs 8.5 (L) 21.8 - 50.0 % [facility] Monocytes 6.7 5.3 - 12.0 % [facility] Eos 0.1 (L) 0.8 - 5.0 % [facility] Basos 0.1 (L) 0.2 - 1.2 % [facility] Immature 0.3 0.0 - 0.5 % [facility] Neutrophils 12.64 (H) 1.78 - 5.36 K/uL [facility] (Absolute) [facility] Lymphs 1.27 (L) 1.32 - 3.57 K/uL [facility] ([facility] Monocytes(Absol 1.00 (H) 0.30 - 0.82 K/uL [facility] Eos (Absolute) 0.01 (L) 0.04 - 0.54 K/uL [facility] Baso (Absolute) 0.02 0.01 - 0.08 K/uL [facility] Immature Grans 0.04 (H) 0.00 - 0.03 K/uL [facility] (Abs) [facility] Absolute NRBC 0.00 K/uL [facility] Specimen Blood Performing Organization Address [facility] one Number [facility] [address] [place] [address] * Comprehensive Metabolic Panel (03/14/2020 4:29 PM CDT) Sodium 140 136 - 145 mmol/L [facility] Potassium 4.0 3.5 - 5.1 mmol/L [facility] Chloride 105 98 - 107 mmol/L [facility] CO2 22 21 - 31 mmol/L [facility] Glucose 117 (H) 70 - 110 mg/dL [facility] Calcium 9.8 8.6 - 10.3 mg/dL [facility] Urea Nitrogen 19.0 7.0 - 25.0 mg/dL [facility] Creatinine 1.0 0.7 - 1.3 mg/dL [facility] Alkaline 100 34 - 104 U/L [facility] Phosphatase [facility] ALT 19 7 - 52 U/L [facility] AST 12 (L) 13 - 39 U/L [facility] Bilirubin, 0.4 0.2 - 1.2 mg/dL [facility] Total [facility] Total Protein 6.4 6.0 - 8.3 g/dL [facility] GFR, Estimated 82 (L) >=90 mL/min/1.73 m2 [facility] Albumin 4.1 (L) 4.2 - 5.5 g/dL [facility] Anion Gap 13 5 - 16 mmol/L [facility] Specimen Blood Performing Organization Address [facility] one Number [facility] [address] [place] [address] [phone] * Magnesium (03/14/2020 4:29 PM CDT) Magnesium 2.0 1.9 - 2.7 mg/dL [facility] Specimen Blood Performing Organization Address [facility] one Number [facility] [address] [place] [address] [phone] * CT HEAD W/O CONTRAST (03/13/2020 8:23 PM CDT) Specimen Impressions Performed At IMPRESSION: SMS 1. No intracranial abnormalities. 2. Nonspecific small nodular right pa rietal scalp nodular subcutaneous lesions with calcifications may represe nt a subcutaneous hemangioma. Differential considerations include epi dermal inclusion cysts. This can be correlated with physical exam. If the report is "FINALIZED" it indicat es that the attending/staff radiologist has reviewed the images and agrees with the resident's interpretation. Dictated By: Chan Frazier MD, 03/13/2020 8 :46 PM I have reviewed the study and agree wit h the findings in this report. Signed By: Tigre Moser MD, 03/13/2020 9:11 PM Narrative Performed At Exam : Head CT without contrast SMS History: Headache, acute, normal neuro exam. Headache and vomiting for 2 weeks. Comparison studies: None. Technique: Axial scans were obtained from skull ba se to the vertex. Coronal and sagittal reconstructions ob tained from the axial data. IV Contrast: None Complications: None Radiation Dose: Total DLP: 936 mGy*cm. Estimated Effective Dose: DLP x 0.0021 mSv FINDINGS: Scalp/Skull: A 1.2 x 1.2 x 1.3 cm (SI x AP x Trans ) nodular hyperdense subcutaneous lesion in the right parietal scalp is a ssociated with calcification. Similar smaller adjacent subcutaneous s atellite lesion with calcification is present. These lesions appear to connect with local scalp veins. Otherwise, unremarkable. Brain sulci: Appropriate for patient's age. Ventricles: Normal in size and configur ation.No hydrocephalus. Extra-axial spaces: No masses or fluid collections. Parenchyma: No abnormal densities. No masses, hemorrhage or acute or chron ic cortical insults Dural sinuses: No abnormal densities. Sellar/Suprasellar region: Intact. Skull base and Craniocervical junction: Intact . Incidental findings: None. Procedure Note Interface, Rad/Mammog In - 03/13/2020 9:16 PM CDT Exam : Head CT without contrast History: Headache, acute, normal neuro exam. Headache and vomiting for 2 weeks. Comparison studies: None. Technique: Axial scans were obtained from skull base to the vertex. Coronal and sagittal reconstructions obtained from the axial data. IV Contrast: None Complications: None Radiation Dose: Total DLP: 936 mGy*cm. Estimated Effective Dose: DLP x 0.0021 mSv FINDINGS: Scalp/Skull: A 1.2 x 1.2 x 1.3 cm (SI x AP x Trans) nodular hyperdense subcutaneous lesion in the right parietal scalp is associated with calcification. Similar smaller adjacent subcutaneous satellite lesion with calcification is present. These lesions appear to connect with local scalp veins. Otherwise, unremarkable. Brain sulci: Appropriate for patient's age. Ventricles: Normal in size and configuration.No hydrocephalus. Extra-axial spaces: No masses or fluid collections. Parenchyma: No abnormal densities. No masses, hemorrhage or acute or chronic cortical insults Dural sinuses: No abnormal densities. Sellar/Suprasellar region: Intact. Skull base and Craniocervical junction: Intact . Incidental findings: None. IMPRESSION IMPRESSION: 1. No intracranial abnormalities. 2. Nonspecific small nodular right elsy etal scalp nodular subcutaneous lesions with calcifications may represent a subcutaneous hemangioma. Differential considerations include epidermal inclusion cysts. This can be correlated with physical exam. If the report is "FINALIZED" it indicates that the attending/staff radiologist has reviewed the images and agrees with the resident's interpretation. Dictated By: Chan Frazier MD, 03/13/2020 8:46 PM I have reviewed the study and agree with the findings in this report. Signed By: Tigre Moser MD, 03/13/2020 9:11 PM Performing Organization Address [facility] one Number SMS after 03/27/2019 Insurance Type Payer Benefit Subscriber ID Effective Phone Address Plan / Dates Group [facility] PRESUMED INDIGENT PRESUMED xxxxxxxxx 20 20- INDIGENT 2020
--- OUTSIDE RECORDS SUMMARY | 2020-03-27 18:05 | XMS REPORT | Clinical Summary ---
Author Author [employer] Organization [employer] Address Unknown Phone Unavailable Care Team Providers Care Mobility Manager Name Role Phone Asked, No Pcp PCP Unavailable Allergies Comments Active Allergy Reactions Severity Noted Date Codeine Other (See 06/07/2018 Comments) Medications End Date Status Medication Sig Dispensed Refills Start Date 03/26/2020 [id number] Take 1 10 capsule 0 ne (FIORINAL) 50-325-40 capsule by 0 mg per capsule mouth every 4 (four) hours as needed for headaches for up to 10 doses. Active Problems Problem Noted Date Chest pain 03/17/2020 Headache 03/17/2020 Nonintractable headache 03/16/2020 Encounters Care Team Description Date Type Specialty Khanh Velasquez MD Roberts, Matthew Thomas, DO Rizvi, Farhan, MD Bavare, Deangelo Carranza MD Chest pain, unspecified type (Primary Dx ); Acute intractable headache, unspecified headache type; Tension headache 03/16/2020 [facility] Internal Ut dicine - Encounter 03/19/2020 03/16/2020 Travel after 03/27/2019 Social History Date Tobacco Use Types Packs/Day Years Used Never Smoker Smokeless Tobacco: Never Used Drinks/Week oz/Week Comments Alcohol Use No Sex Assigned at Date Recorded Not on file Industry Job Start Date Occupation Not on file Not on file Not on file Travel End Travel History Travel Start No recent travel history available. Date Recorded COVID-19 Exposure Response 03/16/2020 7:34 PM CDT In the last month, have you been in contact with No / Unsure someone who was confirmed or suspected to have Coronavirus / COVID-19? Last Filed Vital Signs Reading Time Taken Comments Vital Sign 110/64 03/19/2020 3:25 PM CDT Blood Pressure 67 03/19/2020 3:25 PM CDT Pulse 35.7 C (96.3 F) 03/19/2020 3:25 PM CDT Temperature 20 03/19/2020 3:25 PM CDT Respiratory Rate 98% 03/19/2020 3:25 PM CDT Oxygen Saturation - - Inhaled Oxygen Concentration 103 kg (226 lb 8 oz) 03/16/2020 4:30 PM CDT Weight 185.4 cm (6' 1") 03/16/2020 4:30 PM CDT Height 29.88 03/16/2020 4:30 PM CDT Body Mass Index Plan of Treatment Health Maintenance Due Date Last Done Comments INFLUENZA VACCINE 06/02/2020 Procedures Comments Procedure Name Priority Date/Time Associated Diag nosis POC GLUCOSE Routine 03/19/2020 11:07 AM CDT ESTIMATED GFR Routine 03/19/2020 7:16 AM CDT BASIC METABOLIC PANEL Routine 03/19/2020 7:16 AM CDT HC COMPLETE BLD COUNT Routine 03/19/2020 W/AUTO DIFF 7:16 AM CDT TB IN-TUBE QUANTIFERON Routine 03/19/2020 PLUS 7:16 AM CDT POC GLUCOSE Routine 03/19/2020 6:32 AM CDT POC GLUCOSE Routine 03/18/2020 8:59 PM CDT POC GLUCOSE Routine 03/18/2020 4:10 PM CDT POC GLUCOSE Routine 03/18/2020 11:08 AM CDT POC GLUCOSE Routine 03/18/2020 6:59 AM CDT ESTIMATED GFR Routine 03/18/2020 5:12 AM CDT CREATINE KINASE, TOTAL Routine 03/18/2020 (CPK) 5:12 AM CDT MAGNESIUM LEVEL Routine 03/18/2020 5:12 AM CDT BASIC METABOLIC PANEL Routine 03/18/2020 5:12 AM CDT CBC HEMOGRAM Routine 03/18/2020 5:12 AM CDT BLOOD CULTURE, AEROBIC & Routine 03/18/2020 ANAEROBIC 5:12 AM CDT BLOOD CULTURE, AEROBIC & Routine 03/18/2020 ANAEROBIC 5:05 AM CDT POC GLUCOSE Routine 03/17/2020 9:[address] ANGIOGRAM PE CHEST STAT 03/17/2020 8:08 PM CDT MRI BRAIN WO CONTRAST STAT 03/17/2020 7:30 PM CDT SYPHILIS TOTAL ANTIBODY Routine 03/17/2020 6:53 PM CDT POC GLUCOSE Routine 03/17/2020 4:12 PM CDT CREATINE KINASE, TOTAL Routine 03/17/2020 (CPK) 3:51 PM CDT TROPONIN Timed 03/17/2020 3:51 PM CDT TTE COMPLETE, WO Routine 03/17/2020 CONTRAST, W DOPPLER 12:48 PM CDT ([id number]) POC GLUCOSE Routine 03/17/2020 12:01 PM CDT THYROID STIMULATING Routine 03/17/2020 HORMONE 11:58 AM CDT TROPONIN Timed 03/17/2020 11:58 AM CDT POC GLUCOSE Routine 03/17/2020 6:42 AM CDT TROPONIN Routine 03/17/2020 6:14 AM CDT D-DIMER Routine 03/17/2020 6:14 AM CDT HEMOGLOBIN A1C Routine 03/17/2020 6:14 AM CDT ESTIMATED GFR Routine 03/17/2020 6:14 AM CDT LIPID PANEL Routine 03/17/2020 6:14 AM CDT B NATRIURETIC PEPTIDE Routine 03/17/2020 6:14 AM CDT BASIC METABOLIC PANEL Routine 03/17/2020 6:14 AM CDT HC COMPLETE BLD COUNT Routine 03/17/2020 W/AUTO DIFF 6:14 AM CDT URINALYSIS SCREEN AND STAT 03/17/2020 MICROSCOPY, WITH REFLEX 3:00 AM CDT TO CULTURE URINE DRUGS OF ABUSE STAT 03/17/2020 SCREEN 3:00 AM CDT URINE CULTURE STAT 03/17/2020 3:00 AM CDT LACTIC ACID LEVEL, SEPSIS Timed 03/17/2020 - NOW AND REPEAT 2X EVERY 2:32 AM CDT [address] ANGIOGRAM HEAD W WO STAT 03/16/2020 CONTRAST 10:34 PM CDT LACTIC ACID LEVEL, SEPSIS Timed 03/16/2020 - NOW AND REPEAT 2X EVERY 9:44 PM CDT 3 HOURS TROPONIN Timed 03/16/2020 9:44 PM CDT ALCOHOL LEVEL, BLOOD STAT 03/16/2020 9:44 PM CDT BLOOD CULTURE, AEROBIC & Routine 03/16/2020 ANAEROBIC 8:05 PM CDT LACTIC ACID LEVEL, SEPSIS Timed 03/16/2020 - NOW AND REPEAT 2X EVERY 8:00 PM CDT 3 HOURS BLOOD CULTURE, AEROBIC & Routine 03/16/2020 ANAEROBIC 8:[address] HEAD WO CONTRAST STAT 03/16/2020 6:00 PM CDT ECG ED PRELIMINARY Routine 03/16/2020 INTERPRETATION 5:41 PM CDT ESTIMATED GFR STAT 03/16/2020 5:01 PM CDT TROPONIN STAT 03/16/2020 5:01 PM CDT LIPASE LEVEL STAT 03/16/2020 5:01 PM CDT COMPREHENSIVE METABOLIC STAT 03/16/2020 PANEL 5:01 PM CDT PARTIAL THROMBOPLASTIN STAT 03/16/2020 TIME (PTT) 5:01 PM CDT PROTHROMBIN TIME WITH INR STAT 03/16/2020 5:01 PM CDT HC COMPLETE BLD COUNT STAT 03/16/2020 W/AUTO DIFF 5:01 PM CDT XR CHEST 1 VW PORTABLE STAT 03/16/2020 4:49 PM CDT ECG 12-LEAD STAT 03/16/2020 4:35 PM CDT after 03/27/2019 Results * POC glucose (03/19/2020 11:07 AM CDT) Only the most recent of 10 results within the time period is included. [facility] POC glucose 84 65 - 100 mg/dL GUIN Comment: [facility] Certified Indoor Environmentalist Name: [facility] Device ID: [id number] Specimen Blood Performing Organization Address City/[facility] Ph one Number [facility] [place] [address] [place] [address] PATHOLOGY [place] [address] HOSPITAL * Estimated GFR (03/19/2020 7:16 AM CDT) Only the most recent of 4 results within the time period is included. [facility] Estimated GFR >=90 mL/min/1.73 m2 GUIN Comment: [facility] Catergory Units [facility] G1 >=90 Normal or high G2 60-89 Mildly decreased G3a 45-59 Mildly to moderately decreased G3b 30-44 Moderately to severely decreased G4 15-29 Severely decreased G5 <15 Kidney failure The eGFR was calculated using the Chronic Kidney Disease Epidemiology Collaboration (CKD-EPI) equation. Interpretation is based on recommendations of the National Kidney Foundation-Kidney Disease Outcomes Quality Initiative (NKF-KDOQI) published in 2014. Specimen Performing Organization Address City/[facility] Ph one Number [facility] DEPARTMENT OF [address] [place] [address] PATHOLOGY AND GENOMIC MEDICINE [facility] [address] * TB IN-TUBE Quantiferon plus (03/19/2020 7:16 AM CDT) Quantitative 0.020 IU/mL [facility] NIL [facility] Quantitative 0.020 IU/mL [facility] TB1 REF LAB Quantitative 0.030 IU/mL [facility] TB2 REF [facility] Quantitative 5.110 IU/mL [facility] mitogen REF LAB Quant TB1-NIL 0.000 IU/mL [facility] Quant TB2-NIL 0.010 IU/mL [facility] Quantitative 5.090 IU/mL [facility] mitogen-NIL REF LAB Qualitative Negative [facility] interpretation Comment: REF LAB Results are POSITIVE when either of the following conditions are met: 1.Nil <= 8.0 AND TB1-Nil >= 0.35 AND >= 25% of Nil (TB2 is any value) or 2.Nil <= 8.0 AND TB2-Nil >= 0.35 AND >= 25% of Nil (TB1 is any value) Results are NEGATIVE when all of the following conditions are met: 1.Nil <= 8.0 2.TB1-Nil and TB2-Nil < 0.35 or [>= 0.35 AND < 25% of Nil] 3.Mitogen-Nil >= 0.50 Results are INDETERMINATE under either of the following conditions: 1a.Nil <= 8.0 AND Mitogen-Nil < 0.50 AND 1b 1b.Both TB1-Nil AND TB2-Nil < 0.35 or [>= 0.35 AND <25% of Nil] 2.Nil > 8.0 Warnings and Limitations 1)A negative QFT-Plus result does not preclude the possibility of M. tuberculosis infection or tuberculosis disease: False-negative results can be due to stage of infection (e.g., specimen obtained prior to the development of cellular immune response), co-morbid conditions that affect immune function, incorrect handling of the blood collection tubes following venipuncture, incorrect performance of the assay, or other individual immunological variables. Heterophile antibodies or non-specific IFN-gamma production from other inflammatory conditions may mask specific responses to ESAT-6 or CFP-10 peptides. 2)A positive QFT-Plus result should not be the sole or definitive basis for determining infection with M. tuberculosis. Incorrect performance of the assay may cause false-positive QFT-Plus results. A positive QFT-Plus result should be followed by further medical evaluation for active TB disease (e.g., Acid Fast Bacilli smear and culture, chest X-ray). 3)While ESAT-6 and CFP-10 are absent from all BCG strains and from most known nontuberculous mycobacteria, it is possible that a positive QFT-Plus result may be due to infection by M. kansasii, M. szulgai, or M. marinum. If such infections are suspected, alternative tests should be performed. 4)A false-negative QFT-Plus result can be caused by incorrect blood sample collection or improper handling of the specimen affecting lymphocyte function. Please refer to Specimen Collection and Handling section, page 17, for correct handling of the blood specimens. Delay in incubation may cause false negative or indeterminate results, and other technical parameters may affect ability to detect a significant IFN-gamma response. 5)The effect of lymphocyte count on reliability of QFT-Plus results is unknown. Lymphocyte counts may vary over time for any individual person, and from person to person. The minimum number of lymphocytes required for a reliable test result has not been established and may also be variable. 6)A positive QFT-Plus result can suggest and support the diagnosis of tuberculosis disease. ESAT-6 and CFP-10 are present in M. tuberculosis, but infections by other mycobacteria, including M. kansasii, M. szulgai, and M.marinum may also cause positive results. Other diagnostic evaluations (e.g., AFB smear and culture, chest X-ray) besides QFT-Plus are needed to confirm tuberculosis disease. 7)The predictive value of a negative QFT-Plus result in immunosuppressed persons has not been determined. Specimen Blood Performing Organization Address City/State/Zipcode Ph one Number [facility] DEPARTMENT OF [address] [place] [address] PATHOLOGY AND GENOMIC MEDICINE [facility] * CBC with platelet and differential (03/19/2020 7:16 AM CDT) Only the most recent of 3 results within the time period is included. WBC 6.0 4.2 - 11.0 k/uL [facility] RBC 4.64 4.04 - 5.86 m/uL [facility] HGB 13.4 13.0 - 17.3 g/dL [facility] HCT 39.0 34.0 - 45.0 % [facility] MCV 84.1 80.0 - 98.0 fL [facility] MCH 28.9 27.0 - 34.0 pg [facility] MCHC 34.4 31.5 - 36.5 g/dL [facility] RDW - SD 35.6 (L) 37.0 - 51.0 fL [facility] MPV 8.9 7.4 - 10.4 fL [facility] Platelet count 272 150 - 400 k/uL [facility] Nucleated RBC 0.00 /100 WBC [facility] Neutrophils 56.6 36.0 - 66.0 % [facility] Lymphocytes 33.1 24.0 - 44.0 % [facility] Monocytes 7.8 (H) 0.0 - 6.0 % [facility] Eosinophils 1.7 0.0 - 6.0 % [facility] Basophils 0.5 0.0 - 1.2 % [facility] Immature 0.3 0.0 - 1.0 % GUIN granulocytes [facility] Specimen Blood Performing Organization Address City/State/Zipcode Ph one Number [facility] DEPARTMENT OF [address] [place] [phone] PATHOLOGY AND GENOMIC MEDICINE [facility] [address] * Basic metabolic panel (03/19/2020 7:16 AM CDT) Only the most recent of 3 results within the time period is included. Sodium 141 135 - 150 mEq/L [facility] Potassium 4.0 3.5 - 5.0 mEq/L [facility] Chloride 103 98 - 112 mEq/L [facility] CO2 26 24 - 31 mmol/L [facility] Anion gap 12@ANIO 7 - 15 mEq/L [facility] BUN 15 7 - 18 mg/dL [facility] Creatinine 1.00 0.70 - 1.20 mg/dL [facility] Glucose 94 65 - 100 mg/dL [facility] Calcium 8.9 8.3 - 10.2 mg/dL [facility] Specimen Blood Performing Organization Address City/[facility]/Zipcode Ph one Number [facility] DEPARTMENT OF [address] [place] [address] PATHOLOGY AND GENOMIC MEDICINE [facility] [address] [place] [address] * Blood culture, aerobic & anaerobic (03/18/2020 5:12 AM CDT) Only the most recent of 4 results within the time period is included. Pathologist [facility] Blood culture No growth after 5 days of GUIN isolate incubation. [facility] Comment: HOSPITAL Specimen Information Specimen Source: Blood Specimen Site: Specimen Blood Performing Organization Address City/[facility] Ph one Number [facility] DEPARTMENT OF [address] [place] [address] PATHOLOGY AND GENOMIC MEDICINE [address] * CBC hemogram (03/18/2020 5:12 AM CDT) [facility] Signature WBC 9.0 4.2 - 11.0 k/uL [facility] RBC 4.59 4.04 - 5.86 m/uL [facility] HGB 13.3 13.0 - 17.3 g/dL [facility] HCT 38.4 34.0 - 45.0 % [facility] MCV 83.7 80.0 - 98.0 fL [facility] MCH 29.0 27.0 - 34.0 pg [facility] MCHC 34.6 31.5 - 36.5 g/dL [facility] RDW - SD 35.7 (L) 37.0 - 51.0 fL [facility] MPV 9.0 7.4 - 10.4 fL [facility] Platelet count 294 150 - 400 k/uL [facility] Nucleated RBC 0.00 /100 WBC [facility] Specimen Blood Performing Organization Address [facility] one Number [facility] DEPARTMENT OF [address] [place] [address] PATHOLOGY AND GENOMIC MEDICINE [address] * Magnesium level (03/18/2020 5:12 AM CDT) Magnesium 1.80 1.60 - 2.60 mg/dL [facility] Specimen Blood Performing Organization Address [facility] one Number [facility] DEPARTMENT OF [address] [place] [address] PATHOLOGY AND GENOMIC MEDICINE [address] * Creatine kinase, total (CPK) (03/18/2020 5:12 AM CDT) Only the most recent of 2 results within the time period is included. Creatine kinase 25 (L) 39 - 308 U/L [facility] Specimen Blood Performing Organization Address [facility] Ph one Number [facility] DEPARTMENT OF [address] [place] [address] PATHOLOGY AND GENOMIC MEDICINE [address] * CT Angiogram Pe Chest (03/17/2020 8:08 PM CDT) Specimen Narrative Performed At EXAMINATION: [facility] EXAMINATION: CT ANGIOGRAM PE CHEST CLINICAL HISTORY: 44 years Male PE [place] spected intermediate prob positive D-dimer TECHNIQUE: Multiple CT angiographic merry ges of the chest were obtained during intravenous administration of contrast. Multiple computerized reformatted images as well as 3-D volume rendered images w ere also obtained. Precontrast images of the chest were also obtained. CT imaging was performed with iterative reconstruction techniques and/or automated exposure control to re duce radiation dose. COMPARISON: None. FINDINGS: Lungs and airways: No acute airspace di sease or suspicious pulmonary nodules. There is mild atelectasis in the depend ent portions of both lower lobes. Pleura: No pleural effusion or pneumoth orax. Mediastinum and lymph nodes: No lymphad enopathy. Cardiovascular: The heart size is jose cruz l. No pericardial effusion. The caliber of the ascending, transvers e, and descending thoracic aorta is normal. The thoracic aorta is patent. T here is no evidence of dissection flap in the thoracic aorta. The pulmonary artery trunk, right main pulmonary artery, and left main pulmonary artery are within normal limits of size . No saddle embolus is identified. There is no evidence of right heart strain. N o filling defect is identified within the central segmental opacified pulmonary arteries. Upper abdomen: No suspicious abnormalit ies. Bones: No suspicious osseous lesions. Other: None. IMPRESSION: 1.No acute abnormality identified in th e chest. 2.No evidence of pulmonary embolism. [id number] Procedure Note Interface, Radiology Results 03/17/2020 8:20 PM CDT EXAMINATION: EXAMINATION: CT ANGIOGRAM PE CHEST CLINICAL HISTORY: 44 years Male PE suspected intermediate prob positive D-dimer TECHNIQUE: Multiple CT angiographic images of the chest were obtained during intravenous administration of contrast. Multiple computerized reformatted images as well as 3-D volume rendered images were also obtained. Precontrast images of the chest were also obtained. CT imaging was performed with iterative reconstruction techniques and/or automated exposure control to reduce radiation dose. COMPARISON: None. FINDINGS: Lungs and airways: No acute airspace disease or suspicious pulmonary nodules. There is mild atelectasis in the dependent portions of both lower lobes. Pleura: No pleural effusion or pneumothorax. Mediastinum and lymph nodes: No lymphadenopathy. Cardiovascular: The heart size is normal. No pericardial effusion. The caliber of the ascending, transverse, and descending thoracic aorta is normal. The thoracic aorta is patent. There is no evidence of dissection flap in the thoracic aorta. The pulmonary artery trunk, right main pulmonary artery, and left main pulmonary artery are within normal limits of size. No saddle embolus is identified. There is no evidence of right heart strain. No filling defect is identified within the central segmental opacified pulmonary arteries. Upper abdomen: No suspicious abnormalities. Bones: No suspicious osseous lesions. Other: None. IMPRESSION: 1.No acute abnormality identified in the chest. 2.No evidence of pulmonary embolism. [facility]-[id number] Performing Organization Address [facility] Ph one Number [facility] [address] [place] [address] * MRI Brain Wo Contrast (03/17/2020 7:30 PM CDT) Specimen Narrative [facility]: MRI BRAIN WO CONTRAST CLINICAL HISTORY: headache COMPARISON: March 16, 2020 Findings: No intracranial hemorrhage, acute ische yuko, extra-axial fluid collections or parenchymal mass lesions. No hydrocepha flavia. No suspicious focal bone marrow lesions. Calcified cyst in the right parietal sc alp. IMPRESSION: No acute intracranial abnormalities or mass lesions. [facility] Procedure Note Interface, Radiology Results Incoming - 03/17/2020 7:38 PM CDT EXAMINATION: MRI BRAIN WO CONTRAST CLINICAL HISTORY: headache COMPARISON: March 16, 2020 Findings: No intracranial hemorrhage, acute ischemia, extra-axial fluid collections or parenchymal mass lesions. No hydrocephalus. No suspicious focal bone marrow lesions. Calcified cyst in the right parietal scalp. IMPRESSION: No acute intracranial abnormalities or mass lesions. [facility] Performing Organization Address [facility] one Number [facility] [address] [place] [address] * Syphilis total antibody (03/17/2020 6:53 PM CDT) Pathologist [facility] Syphilis total Non-reactiveComment: No Non-reactive [place] N antibody serological evidence of [facility] syphilis infection. HOSPITAL Specimen Blood Performing Organization Address [facility] Ph one Number [facility] DEPARTMENT OF [address] [place] [address] PATHOLOGY AND GENOMIC MEDICINE [facility] [address] [place] [address] HOSPITAL * Troponin (03/17/2020 3:51 PM CDT) Only the most recent of 5 results within the time period is included. Troponin <0.006 0.000 - 0.040 ng/mL GUIN Comment: [facility] In patients suspected of PHEBA having a myocardial HOSPITAL infarction, along with all other appropriate clinical measures and actions including ECG and other diagnostics as appropriate, measure Ultra TnI at 0 hrs and at 3 hrs. Myocardial infarction VERY LIKELY The 0 hr TnI level is > 0.10 ng/mL Myocardial infarction LIKELY The 0 hr TnI level is > 0.04 ng/mL and 3 hr level is increased or decreased by at least 0.020 ng/mL Myocardial infarction VERY UNLIKELY Both the 0 hr and 3 hr TnI levels <= 0.04 ng/mL(within normal limits) OR 0 hr is > 0.04 ng/mL and 3 hr is increased OR decreased by less than 0.020 ng/mL Specimen Blood Performing Organization Address City/State/[facility] Ph one Number [facility] DEPARTMENT OF [facility] [place] [address] PATHOLOGY AND GENOMIC MEDICINE [place] [address] [address] * Transthoracic Echocardiogram Complete, (w Contrast, Strain and 3D if needed) (03/17/2020 12:48 PM CDT) Ao Root 3.06 cm HM SYNGO Diameter AoV Area, Vmax 2.05 cm2 HM SYNGO AoV Area, VTI 1.57 cm2 [facility] AoV Mean PG 6.45 mmHg [facility] AoV Peak PG 8.77 mmHg [facility] AoV Vmax 1.65 m/s [facility] AoV VTI 0.29 m [facility] SYNGO BSA [place] 2.31 m2 [facility] SYNGO BSA 2.24 m2 HM SYNGO IVS,d 1.03 cm HM [facility] IVS/LVPW,2D 1.05 HM [facility] Left Atrium 3.72 cm HM [facility] Dimension Anterior LV,d 4.44 cm HM [facility] LV EF,2D 72.43 % HM [facility] LV EF,A4C 73.08 % HM [facility] [place],d A4C 8.34 cm HM [facility] [place],s A4C 7.37 cm HM [facility] LV,s 2.89 cm [facility] LV SV,A4C 63.98 % [facility] LV Vol,d A4C 87.55 ml HM [facility] LV Vol,s A4C 23.57 ml HM [facility] LVOT area 2.75 cm2 HM [facility] LVOT Diam,S 1.87 cm HM [facility] LVOT Vmax 1.10 m/s HM [facility] LVOT VTI 0.15 m HM [facility] LVPWD,d 0.98 cm HM [facility] PV Pk Grad 6.76 mmHg HM [facility] PV VMAX 1.30 m/s HM [facility] RVOT Vmax 0.92 m/s [facility] MV E A ratio 0.89 HM [facility] AoV area i VTI 0.70 cm2/m2 HM [facility] BSA Imtiaz BMI 30.65 kg/m2 HM [facility] E wave 112.94 msec HM [facility] decelartion time MV Peak A Ryan 0.91 m/s HM [facility] MV valve area p 6.72 cm2 HM [facility] 1/2 method MV Peak E Ryan 0.82 m/s HM [facility] MV stenosis 32.75 ms HM [facility] pressure 1/2 time AV LVOT peak 4.88 mmHg HM [facility] gradient Ao Root 3.06 cm HM [facility] Diameter LV SYS VOL 32.02 ml HM [facility] LV GUERRERO VOL 89.81 ml HM [facility] LA area s A4C 16.81 cm2 HM [facility] LV SI Teich 2D 25.75 ml/m2 HM [facility] LV SV Teich 2D 57.79 ml HM [facility] LV Vol s Teich 32.02 ml HM [facility] PSAX LVOT CI 1.71 l/min/m2 HM [facility] LVOT CO 3.83 l/min HM [facility] LVOT HR for 91.79 bpm HM [facility] LVOT CO LVOT SI 18.58 ml/m2 HM [facility] RVOT pk grad 3.40 mmHg HM [facility] BSA [place] 2.31 m2 HM [facility] AoV Vmn 1.21 HM [facility] IVS s 2D 1.66 HM [facility] LV FS Teich 2D 34.91 HM [facility] MV AE ratio 1.12 HM [facility] LV FS Cube 2D 34.91 HM [facility] LVOT Vmn 0.83 HM [facility] Pt Size 182.88 HM [facility] Pt Wt 102.51 HM [facility] Aov area Vmn 2.17 cm2 HM [facility] LVOT mean grad 2.93 mmHg HM [facility] MAX Pred HR 176.58 HM [facility] RVOT mean grad 2.31 mmHg HM [facility] RVOT Vmn 0.71 m/s HM [facility] RVOT VTI 0.23 m HM [facility] 85 of MPHR 150.10 HM [facility] AoV area I VMN 0.97 cm2/m2 [facility] bsa Calc MPHR 176.58 bpm [facility] IVS pct thck 60.94 % [facility] PLAX LV SI Cube 2D 28.34 ml/m2 HM [facility] LV SV Cube 2D 63.60 ml HM [facility] LV vol d cube 87.82 ml HM [facility] 2D LV vol s cube 24.21 ml HM [facility] 2D LVPW pct thck 47.94 % HM [facility] PLAX LVPW s PLAX 1.46 cm HM [facility] MV Decel slope 7.22 m/s2 HM [facility] Pred Exer Dur 11.25 HM [facility] R1 Pred METS R1 11.49 HM [facility] LA Vol MOD A4C 41.88 ml HM [facility] Velocity Ratio 0.67 m/s [facility] (V1/V2) EF 64.35 % [facility] E/A ratio 0.90 HM [facility] Specimen Narrative Performed At HM [facility] Left ventricular systolic function i s normal. Left Ventricular ejection fraction i s 65 - 70%. Spectral Doppler shows impaired rela xation pattern of left ventricular diastolic filling. No hemodynamically significant valvu lar abnormalities. Performing Organization Address [facility] Ph one Number SYN[facility] [address] [place] [address], * Thyroid stimulating hormone (03/17/2020 11:58 AM CDT) TSH 0.60 0.27 - 4.20 uIU/mL [facility] Specimen Blood Performing Organization Address City/[facility] Ph one [facility] DEPARTMENT OF [address] [place] [address] PATHOLOGY AND GENOMIC MEDICINE [facility] [address] * D-dimer (03/17/2020 6:14 AM CDT) D-dimer 0.47 (H) 0.00 - 0.40 ug/mL GUIN Comment: FEU [facility] Units are ug/ml Fibrinogen [facility]. [facility] When combined with low clinical probability, D-dimer results of less than 0.5 ug/ml FEU have a good negative predictive value in excluding PE or DVT. For D-dimer results greater than 0.5 ug/ml FEU further testing is indicated if PE or DVT is suspected clinically. Elevated D-dimer results have been reported in DVT, PE, and DIC cases and may indicate the presence of a clot. D-dimer results may be elevated due to old age, , inflammatory diseases, trauma, post-operative states, sepsis, and malignancies. Specimen Blood Performing Organization Address City/[facility] Ph one Number [facility] DEPARTMENT OF [address] [place] [address] PATHOLOGY AND GENOMIC MEDICINE [address] [place] * B natriuretic peptide (03/17/2020 6:14 AM CDT) BNP 23 0 - 100 pg/mL [facility] Specimen Blood Performing Organization Address City/[facility] Ph one Number [facility] DEPARTMENT OF [address] [place] [address] PATHOLOGY AND GENOMIC MEDICINE [facility] [address] [place] [address] * Hemoglobin A1c (03/17/2020 6:14 AM CDT) Hemoglobin A1C 5.5 4.0 - 5.6 % GUIN Comment: [facility] HbA1c cutoffs for diagnosing [facility] diabetes: HOSPITAL 4.0% - 5.6% = normal 5.7% - 6.4% = increased risk for diabetes (prediabetes)9 >=6.5% = diabetes9 Goals for glycemic control (ADA 2016) < 7.0% Target for non adults with diabetes. More or less stringent targets may be appropriate for individual patients. <7.5% Target for Children and adolescents with type 1 diabetes. Specimen Performing Organization Address City/[facility] Ph one Number [facility] DEPARTMENT OF [address] [place] [phone] PATHOLOGY AND GENOMIC MEDICINE [facility] [address] * Lipid panel (03/17/2020 6:14 AM CDT) Cholesterol 159 0 - 199 mg/dL [facility] Triglycerides 48 0 - 149 mg/dL [facility] HDL cholesterol 51 40 - 9,999 mg/dL [facility] LDL cholesterol 98Comment: Result obtained by 0 - 99 mg/dL GUIN direct LDL measurement [facility] Lipid panel See below [facility] interpretation Comment: [facility] Total Cholesterol (mg/dL) [facility] LDL Cholesterol HOSPITAL (mg/dL) <200 Desirable <100 Optimal 200-239 Borderline-high 100-129 Near or above optimal >=240 High 130-159 Borderline-high 160-189 High >=190 Very high HDL Cholesterol (mg/dL) Triglycerides (mg/dL) <40 Low <150 Normal >=60 High 150-199 Borderline-high 200-499 High >=500 Very high Risk Catergories that modify LDL goals. Risk Catergories LDL goal (mg/dL) CHD and CHD risk equivalent <100 (10-year risk >20%) Multiple (2+) risk factors <130 (10-year risk =<20%) 0-1 risk factors <160 (<10-year risk) Defining levels of lipids in metabolic syndrome Triglycerides >=150 mg/dL HDL Cholesterol Men <40 mg/dL Women <50 mg/dL Non-HDL cholesterol is a second target for therapy in persons with high triglycerides (>=200 mg/dL) Specimen Blood Performing Organization Address City/State/[facility] Ph one Number [facility] DEPARTMENT OF [address] [place] [phone] PATHOLOGY AND GENOMIC MEDICINE [facility] [address] * Urinalysis screen and microscopy, with reflex to culture (03/17/2020 3:00 AM CDT) Specimen site Clean catch [facility] Color, UA Yellow [facility] Appearance, UA Clear [facility] Specific 1.040 (H) 1.001 - 1.035 GU[facility] gravity, UA [facility] pH, UA 5.0 5.0 - 8.5 [facility] Protein, UA Negative Negative [facility] Glucose, UA Negative Negative [facility] Ketones, UA 2+ (A) Negative [facility] Bilirubin, UA Negative Negative [facility] Blood, UA Negative Negative [facility] Nitrite, UA Negative Negative [facility] Urobilinogen, 2.0 (A) <2.0 GUIN UA [facility] Leukocyte Negative Negative GU[facility] esterase, UA [facility] WBC, UA None seen 0 - 1 /HPF [facility] RBC, UA 1 0 - 5 /HPF [facility] Bacteria, UA None seen None seen [facility] Yeast, UA None seen [facility] Yeast with None seen [facility] Specimen Urine Performing Organization Address City/State/[facility] Ph one Number [facility] DEPARTMENT OF [address] [place] [address] PATHOLOGY AND GENOMIC MEDICINE [facility] [address] [place] [address] HOSPITAL * Urine drugs of abuse screen (03/17/2020 3:00 AM CDT) Amphetamine Negative [facility] screen, urine [facility] Barbiturate Negative GU[facility] screen, urine [facility] Benzodiazepine Negative GUIN screen, urine [facility] Cocaine screen, Negative GUIN urine [facility] Methadone Negative GUIN metabolite [facility] (EDDP), urine [facility] Opiates screen, Positive (A) GUIN urine [facility] Oxycodone Negative GUIN screen, urine [facility] Phencyclidine Negative GU[facility] screen, urine [facility] Cannabinoid Negative [facility] screen, urine Comment: [facility] Drug screen minimum [facility] concentration of detectability HOSPITAL Amphetamines 1000 ng/mL Barbiturates 200 ng/mL Benzodiazepines 300 ng/mL Cocaine 300 ng/mL Methadone 300 ng/mL Opiates 300 ng/mL Oxycodone 300 ng/mL Phencyclidine 25 ng/mL Cannabinoids 50 ng/mL Tricyclics 1000 ng/mL Results are from screening tests and should only be used for medical evaluation. Drug testing for legal purposes requires definitive (or confirmatory) testing methods, which are available upon request. Contact the laboratory if definitive testing is required. Specimen Urine Performing Organization Address [facility] one Number [facility] DEPARTMENT OF [address] [place] [address] PATHOLOGY AND [facility] MEDICINE [address] * Urine culture (03/17/2020 3:00 AM CDT) Urine culture SEE COMMENTComment: GUIN Bacteriuria screen negative. [facility] Specimen Urine Performing Organization Address [facility] one Number [facility] DEPARTMENT [address] [place] [address] PATHOLOGY AND [facility] MEDICINE [address] * Lactic acid level, SEPSIS - Now and repeat 2x every 3 hours (03/17/2020 2:32 AM CDT) Only the most recent of 3 results within the time period is included. Lactic acid 1.0 0.5 - 2.2 mmol/L [facility] Specimen Blood Performing Organization Address [facility] [place] [address] PATHOLOGY AND [facility] MEDICINE [address] * CTA Head W Wo Contrast (03/16/2020 10:34 PM CDT) Specimen Narrative Performed At EXAMINATION: CT ANGIOGRAM HEAD W WO CONTRAST HM RAD[facility] ANT CLINICAL HISTORY: Headache acute se aaron worst INGRAM of life. Evaluate for recent artery abnormality. COMPARISON: CT brain from earlier tod ay. TECHNIQUE: Imaging of the intracrania l circulation was obtained from the skull base to the vertex during the arterial phase of enhancement. Postprocessing was performed with MIP multiplanar and 3D r econstructed images. CT scans are performed using radiation dose reduction techniques. Te chnical factors are evaluated and adjusted to ensure appropriate moderati on of exposure. Automated dose management technology is applied to adjust radiati on exposure while achieving a diagnostic quality image. FINDINGS: The study was completed emergently afte r hours at 2235 hours. There is no evidence of significant lakeshia nosis in the major arteries in the head. There is flow in the anterior and left posterior communicating arteries. The distal right vertebral artery is domina nt. I do not see definite evidence of aneurysm or arterial venous malformation. There is no evidence of artery dissection. There is good enhancement within the dural ve nous sinuses with dominant venous drainage towards the right. The study w as not performed for good evaluation of the brain. IMPRESSION: No abnormality in the intracranial giancarlo joanie to account for the patient's headaches. [facility]-[id number] Procedure Note Interface, Radiology Results Incoming - 03/16/2020 10:42 PM CDT EXAMINATION: CT ANGIOGRAM HEAD W WO CONTRAST CLINICAL HISTORY: Headache acute severe worst INGRAM of life. Evaluate for recent artery abnormality. COMPARISON: CT brain from earlier today. TECHNIQUE: Imaging of the intracranial circulation was obtained from the skull base to the vertex during the arterial phase of enhancement. Postprocessing was performed with MIP multiplanar and 3D reconstructed images. CT scans are performed using radiation dose reduction techniques. Technical factors are evaluated and adjusted to ensure appropriate moderation of exposure. Automated dose management technology is applied to adjust radiation exposure while achieving a diagnostic quality image. FINDINGS: The study was completed emergently after hours at 2235 hours. There is no evidence of significant stenosis in the major arteries in the head. There is flow in the anterior and left posterior communicating arteries. The distal right vertebral artery is dominant. I do not see definite evidence of aneurysm or arterial venous malformation. There is no evidence of artery dissection. There is good enhancement within the dural venous sinuses with dominant venous drainage towards the right. The study was not performed for good evaluation of the brain. IMPRESSION: No abnormality in the intracranial arteries to account for the patient's headaches. [facility]-[id number] Performing Organization Address City/State/Zipcode Ph one Number [facility] [address] [place] [address] * Alcohol level, blood (03/16/2020 9:44 PM CDT) Alcohol None Detected mg/dL GUIN Comment: [facility] Normal [facility] None Detected HOSPITAL Legal Intoxication in [place] 80 mg/dL (0.08%) Toxic Concentration 200 mg/dL (0.2%) Potentially Fatal 350-500 mg/dL (0.35%-0.5%) Alcohol percent None Detected % [facility] Specimen Blood Performing Organization Address City/State/Zipcode Ph one Number [facility] DEPARTMENT OF [address] [place] [address] PATHOLOGY AND GENOMIC MEDICINE [facility] [address] [place] [address] HOSPITAL * CT Head Wo Contrast (03/16/2020 6:00 PM CDT) Specimen Narrative Performed At EXAMINATION: CT HEAD WO CONTRAST [facility] CLINICAL HISTORY: headache COMPARISON: CT of the head dated 2017 FINDINGS: There is no evidence of acute hemorrhag e, mass lesion, or midline shift. The gaines-white matter differentiation is pr eserved with no evidence of acute territorial infarction. Ventricles, sul ci, and cisterns are age-appropriate in size and configuration. There is no extra-axial fluid collectio n. There is stable partially calcified sub cutaneous sebaceous cyst in the right parietal scalp region. Visualized paranasal sinuses and mastoi d air cells are clear. Bones, orbits, and soft tissues are unremarkable All CT images were acquired using low-d ose technique with automated exposure control. IMPRESSION: No acute intracranial hemorrhage or mas s effect. [facility]-[id number] Procedure Note Hm Interface, Radiology Results Incoming - 03/16/2020 6:07 PM CDT EXAMINATION: CT HEAD WO CONTRAST CLINICAL HISTORY: headache COMPARISON: CT of the head dated June 07, 2018 FINDINGS: There is no evidence of acute hemorrhage, mass lesion, or midline shift. The gaines-white matter differentiation is preserved with no evidence of acute territorial infarction. Ventricles, sulci, and cisterns are age-appropriate in size and configuration. There is no extra-axial fluid collection. There is stable partially calcified subcutaneous sebaceous cyst in the right parietal scalp region. Visualized paranasal sinuses and mastoid air cells are clear. Bones, orbits, and soft tissues are unremarkable All CT images were acquired using low-dose technique with automated exposure control. IMPRESSION: No acute intracranial hemorrhage or mass effect. [facility]-[id number] Performing Organization Address City/[facility] Ph one Number [facility] [address] [place] [address] * ECG ED Preliminary Interpretation - Not an Order (03/16/2020 5:41 PM CDT) Narrative Performed At Khanh Velasquez MD 03/17/2020 1 :42 AM ECG ED Preliminary Interpretation - Not an Order Performed by: Khanh Velasquez MD Authorized by: Khanh Velasquez MD ECG reviewed by ED Physician in the abs ence of a machining manager: yes Interpretation: Interpretation: abnormal Rate: ECG rate: 83 ECG rate assessment: normal Rhythm: Rhythm: sinus rhythm QRS: QRS axis: Normal QRS intervals: Normal ST segments: ST segments: Normal T waves: T waves: non-specific T waves comment: Lead III, V3 and a VF * Partial thromboplastin time, activated (03/16/2020 5:01 PM CDT) PTT 28.6 23.0 - 36.0 sec GUIN Comment: [facility] PTT therapeutic range for [facility] unfractionated heparin is HOSPITAL 61.0-112.0 seconds which corresponds to Anti-Xa 0.3-0.7 U/ml. Specimen Blood Performing Organization Address City/[facility] Ph one Number [facility] DEPARTMENT OF [address] [place] [address] PATHOLOGY AND [facility] MEDICINE [address] * Prothrombin time with INR (03/16/2020 5:01 PM CDT) Pathologist [facility] Prothrombin 13.6 11.5 - 14.5 sec GUIN time [facility] INR 1.04 GUIN Comment: [facility] For patients on anticoagulant [facility] therapy, reference ranges HOSPITAL below: Indication: INR Value Treatment of Venous Thrombosis, 2.0-3.0 pulmonary emboli, or prophylaxis of a venous thrombosis, or systemic emboli. High dose, high risk patients 3.0-4.5 with mechanical valves. NOTE: INR values over 3.0 are sometimes associated with gastrointestinal hemorrhage, especially values over 4.0. Specimen Blood Performing Organization Address City/[facility] Ph one Number [facility] DEPARTMENT OF [address] [place] [address] PATHOLOGY AND GENOMIC MEDICINE [facility] [address] * Lipase level (03/16/2020 5:01 PM CDT) Lipase 14 13 - 60 U/L [facility] Specimen Blood Performing Organization Address City/State/[facility] Ph one Number [facility] DEPARTMENT OF [address] [place] [phone] PATHOLOGY AND GENOMIC MEDICINE [facility] [address] [place] [address] HOSPITAL * Comprehensive metabolic panel (03/16/2020 5:01 PM CDT) Pathologist [facility] Sodium 140 135 - 150 mEq/L [facility] Potassium 3.9 3.5 - 5.0 mEq/L [facility] Chloride 102 98 - 112 mEq/L [facility] CO2 25 24 - 31 mmol/L [facility] Anion gap 13@ANIO 7 - 15 mEq/L [facility] BUN 16 7 - 18 mg/dL [facility] Creatinine 1.00 0.70 - 1.20 mg/dL [facility] Glucose 91 65 - 100 mg/dL [facility] Calcium 9.0 8.3 - 10.2 mg/dL [facility] Protein 6.8 6.3 - 8.3 g/dL [facility] Albumin 3.7 3.5 - 5.0 g/dL [facility] A/G ratio 1.2 0.7 - 3.8 [facility] Alkaline 110 0 - 129 U/L GUIN phosphatase [facility] AST 15 10 - 50 U/L [facility] ALT 23 5 - 50 U/L [facility] Total bilirubin 0.9 0.2 - 1.2 mg/dL [facility] Specimen Blood Performing Organization Address City/State/[facility] Ph one Number [facility] DEPARTMENT OF [address] [place] [address] PATHOLOGY AND GENOMIC MEDICINE [facility] [address] [place] [address] HOSPITAL * XR Chest 1 Vw Portable (03/16/2020 4:49 PM CDT) Specimen Narrative Performed At EXAMINATION: XR CHEST 1 VW PORTABLE [facility] CLINICAL HISTORY: SOB COMPARISON: No prior IMPRESSION: Lines: None Lungs and pleura: No consolidations. No pleural effusion or pneumothorax. Lingular subsegmental atelectasis. Heart and mediastinum: Normal appearanc e of cardiomediastinal silhouette. Bones: Old posttraumatic deformity of t he right clavicle. [id number] Procedure Note Hm Interface, Radiology Results Incoming - 03/16/2020 4:54 PM CDT EXAMINATION: XR CHEST 1 VW PORTABLE CLINICAL HISTORY: SOB COMPARISON: No prior IMPRESSION: Lines: None Lungs and pleura: No consolidations. No pleural effusion or pneumothorax. Lingular subsegmental atelectasis. Heart and mediastinum: Normal appearance of cardiomediastinal silhouette. Bones: Old posttraumatic deformity of the right clavicle. [id number] Performing Organization Address [facility] Ph one Number [facility] [address] [place] [address] * ECG 12 lead (03/16/2020 4:35 PM CDT) Ventricular 83 [facility] rate Atrial rate 83 [facility] PA interval 152 [facility] QRSD interval 86 [facility] QT interval 370 [facility] QTC interval 434 [facility] P axis 1 52 [facility] M[facility] QRS axis 1 -5 [facility] M[facility] T wave axis 21 [facility] MUSE EKG impression Normal sinus rhythm-Inferior [facility] MUSE infarct , age undetermined-Abnormal ECG-In automated comparison with ECG of 07-JUN-2018 06:55,-Inferior infarct is now present- Specimen Narrative Performed At This result has an attachment that is n ot available. Performing Organization Address [facility] Ph one Number [facility] MUSE [address] [place] [address] after 03/27/2019 Advance Directives For more information, please contact: [phone] Patient Md Physician Dermatologist Explanation Type Date Recorded Advance Directives, 03/16/2020 5:17 PM Living Will and Medical Power of Coffee Shop Manager Advance Directives, 06/07/2018 7:02 AM Living Will and Medical Power of [employer] Manager
--- OUTSIDE RECORDS SUMMARY | 2020-03-27 18:05 | XMS REPORT | Summary of Care ---
Author Author CARLO Sykes R.N. Organization Unknown Address [facility] Phone Unavailable Care Team Providers Care Scalehouse Attendant Name Role Phone GILLES LEIVA N.P. Unavailable Unavailable Unavailable Unavailable Functional Status Name Dates Details Functional status health issues are not documented Status: Name Dates Details Cognitive status health issues are not d ocumented Status: Problems Name Dates Details Right radial head fracture (813.05, S52. 121A) Status: Active Anxiety and depression (300.00, F41.9) Status: Active Encounter to establish care with new doc tor (V65.8, Z76.89) Status: Active Medications Name Dates Details DULoxetine HCl - 20 MG Oral Capsule Meryl yed Release Particles TAKE 1 CAPSULE BEDTIME Quantity: 30 CALI N.P., GILLES * Start : 19-Aug-2018 Active Allergies and Adverse Reactions Name Dates Details No Known Drug Allergies (Allergy) Status : Active Past Medical History Name Dates Details History of asthma (V12.69, Z87.09) Status: Resolved History of Hay fever (477.9, J30.1) Status: Resolved History of hemorrhoids (V13.89, Z87.19) Status: Resolved History of Hernia (553.9, K46.9) Status: Resolved Procedures Procedure Dates Details Procedures not documented Immunization Name Dates Details Immunizations not documented Family History Name Dates Details Family history of diabetes mellitus (V18 .0, Z83.3) Status: Active Family history of hypertension (V17.49, Z82.49) Status: Active Family history of arthritis (V17.7, Z82. 61) Status: Active Family history of malignant neoplasm (V1 6.9, Z80.9) Status: Active Name Dates Details Family history of diabetes mellitus (V18 .0, Z83.3) Status: Active Family history of hypertension (V17.49, Z82.49) Status: Active Family history of arthritis (V17.7, Z82. 61) Status: Active Family history of malignant neoplasm (V1 6.9, Z80.9) Status: Active Social History Name Dates Details - Status: Name Dates Details Current some day smoker Vital Signs Date Test Result Details No Known Vitals to report Results Date Description Value Details Results not documented Plan of Care Name Dates Details Planned Observations Planned Goals not documented Planned Encounters Mental Health Counselor Follow Up Instructions Name Dates Details Instructions not documented Encounters Appointment; GILLES LEIVA NP Encounter Diagnosis: Problem not documented On: 19-Aug-2018 13:00 Appointment; ROBIN CHAU NP Encounter Diagnosis: Problem not documented On: 01-Sep-2018 13:30
[2020-03-27] MEDS ORDERED: ASPIRIN 81 MG CHEW TAB PO ONE (18:45)
--- NOTE | 2020-03-27 19:17 | Diagnostic Imaging Report ---
Examination: Single AP view of the chest. COMPARISON: None. INDICATION: Chest pain DISCUSSION: Lines/tubes: None. Lungs: The lungs are well inflated and clear. No pneumonia or pulmonary edema. Pleura: No pleural effusion or pneumothorax. Heart and mediastinum: The heart and the mediastinum are unremarkable. Bones and soft tissues: No acute bony abnormalities. IMPRESSION: 1. No acute cardiopulmonary abnormalities. Signed by: Dr. Brery Puente M.D. on 03/27/2020 7:14 PM
[2020-03-27 19:29] LABS: BASOPHILS % 0.4 % (0.0-1.0); EOSINOPHILS % 0.4 % (0.0-6.0); HEMATOCRIT 45.9 % (38.2-49.6); HEMOGLOBIN 15.7 g/dL (14.0-18.0); LYMPHOCYTES # (AUTO) 1.8 (1.0-3.2); LYMPHOCYTES % 15.9 % (18.0-39.1); MEAN CORPUSCULAR HEMOGLOBIN 28.7 pg (28-32); MEAN CORPUSCULAR HGB CONC 34.2 g/dL (31-35); MEAN CORPUSCULAR VOLUME 83.9 fL (81-99); MONOCYTES # (AUTO) 0.9 (0.2-0.8); MONOCYTES % 7.9 % (4.4-11.3); NEUTROPHILS # (AUTO) 8.3 (2.1-6.9); PLATELET COUNT 382 x10e3/uL (140-360); RED BLOOD COUNT 5.47 x10e6/uL (4.3-5.7); RED CELL DISTRIBUTION WIDTH 12.7 % (11.7-14.4)
--- NOTE | 2020-03-27 19:33 | Emergency Department Note ---
History of Present Illnes History of Present Illness Chief Complaint: Chest Pain History of Present Illness This is a 44 year old male who presents with c/o chest pain for past 2 1 days, states it is constant and never goes away, worse with inspiration and movement. per ems they gave pt ntg and pain wnet from a 10 to a 8, pt states his pain is unchanged. . Historian: Patient, Multifocal Lens Inspector/EMS Arrival Mode: [facility] Treatment SNUFF BLENDER: IV, EKG, Aspirin, See EMS Report Additional Treatment SNUFF BLENDER: asa 324mg/ntg/18g rt hand Onset (how long ago): day(s) (21) Location: chest Quality: hurts to breath and move Radiation: non-radiation Severity: severe Onset quality: gradual Duration (how long): day(s) (21) Timing of current episode: constant Progression: unchanged Chronicity: chronic Context: recent illness Relieving factors: none Exacerbating factors: none Associated symptoms: denies other symptoms Treatments prior to arrival: none, other (ntg by ems with no change in pain) Risk factors: htn, dm, smokes Past Medical/Family History Physician Review I have reviewed the patient's past medical and family history. Any updates have been documented here. Past Medical History Recent Fever: No Clinical Suspicion of Infectio: No New/Unexplained Change in Ment: No Past Medical History: Hypertension, Diabetes, Anxiety Other Medical History: anxiety Social History Smoking Cessation: Current some day smoker Counseling Performed: Yes Alcohol Use: Occasional Any Illegal Drug Use: No Other Last Tetanus: 2011 Review of Systems Review of Systems Constitutional: no symptoms EENTM: no symptoms Cardiovascular: as per HPI Respiratory: no symptoms Gastrointestinal: no symptoms Genitourinary: no symptoms Musculoskeletal: no symptoms Neurological: no symptoms Psychological: no symptoms Endocrine: no symptoms Hematological/Lymphatic: no symptoms Review of other systems All other systems reviewed and negative. Physical Exam Related Data Allergies: Coded Allergies: codeine (Verified Allergy, Unknown, 04/01/17) Uncoded Allergies: SEIZURE MEDICATION (Allergy, Unknown, 12/23/16) Triage Vital Signs Vital Signs Date Time Temp Pulse Resp B/P (MAP) Pulse Ox O2 Delivery O2 Flow Rate FiO2 03/27/20 17:46 98.0 95 20 125/97 99 Vital signs reviewed: Yes Physical Exam CONSTITUTIONAL Constitutional: well-developed, well-nourished, other (pt is in no apparant distress) HENT HENT: normocephalic, atraumatic, oropharynx clear/moist, nose normal HENT L/R: left ext ear normal, right ext ear normal EYES Eyes: PERRL, conjunctivae normal NECK Neck: ROM normal PULMONARY Pulmonary: effort normal, breath sounds normal CARDIOVASCULAR Cardiovascular: regular rhythm, heart sounds normal, capillary refill normal, normal rate, other (cheest pain reproducible with palpataion of sternum and deep inspiration) GASTROINTESTINAL Abdominal: soft, nontender, bowel sounds normal GENITOURINARY Genitourinary: exam deferred SKIN Skin: warm, dry MUSCULOSKELETAL Musculoskeletal: ROM normal NEUROLOGICAL Neurological: alert, oriented x 3, no gross motor or sensory deficits PSYCHOLOGICAL Psychological: mood/affect normal, judgement normal Results Laboratory Laboratory Laboratory Tests Test 03/27/20 19:16 White Blood Count 11.04 x10e3/uL (4.8-10.8) Red Blood Count 5.47 x10e6/uL (4.3-5.7) Hemoglobin 15.7 g/dL (14.0-18.0) Hematocrit 45.9 % (38.2-49.6) Mean Corpuscular Volume 83.9 fL (81-99) Mean Corpuscular Hemoglobin 28.7 pg (28-32) Mean Corpuscular Hemoglobin Concent 34.2 g/dL (31-35) Red Cell Distribution Width 12.7 % (11.7-14.4) Platelet Count 382 x10e3/uL (140-360) Neutrophils (%) (Auto) 75.0 % (38.7-80.0) Lymphocytes (%) (Auto) 15.9 % (18.0-39.1) Monocytes (%) (Auto) 7.9 % (4.4-11.3) Eosinophils (%) (Auto) 0.4 % (0.0-6.0) Basophils (%) (Auto) 0.4 % (0.0-1.0) Neutrophils # (Auto) 8.3 (2.1-6.9) Lymphocytes # (Auto) 1.8 (1.0-3.2) Monocytes # (Auto) 0.9 (0.2-0.8) Eosinophils # (Auto) 0.0 (0.0-0.4) Basophils # (Auto) 0.0 (0.0-0.1) Absolute Immature Granulocyte (auto 0.04 x10e3/uL (0-0.1) Prothrombin Time 12.5 seconds (11.9-14.5) Prothromb Time International Ratio 0.88 Activated Partial Thromboplast Time 28.4 seconds (23.8-35.5) Sodium Level 141 mmol/L (136-145) Potassium Level 4.7 mmol/L (3.5-5.1) Chloride Level 104 mmol/L (98-107) Carbon Dioxide Level 25 mmol/L (22-29) Anion Gap 16.7 mmol/L (8-16) Blood Urea Nitrogen 13 mg/dL (7-26) Creatinine 1.16 mg/dL (0.72-1.25) Estimat Glomerular Filtration Rate > 60 ML/MIN (60-) BUN/Creatinine Ratio 11 (6-25) Glucose Level 85 mg/dL (74-118) Calcium Level 9.8 mg/dL (8.4-10.2) Total Bilirubin 0.5 mg/dL (0.2-1.2) Aspartate Amino Transf (AST/SGOT) 26 IU/L (5-34) Alanine Aminotransferase (ALT/SGPT) 38 IU/L (0-55) Alkaline Phosphatase 124 IU/L (40-150) Creatine Kinase 65 IU/L (30-200) Creatine Kinase MB 1.00 ng/mL (0-5.0) Troponin I 0.035 ng/mL (0-0.300) B-Type Natriuretic Peptide < 10.0 pg/mL (0-100) Total Protein 8.1 g/dL (6.5-8.1) Albumin 4.5 g/dL (3.5-5.0) Globulin 3.6 g/dL (2.3-3.5) Albumin/Globulin Ratio 1.3 (0.8-2.0) Laboratory Tests Test 03/27/20 19:16 Lab results reviewed: Yes Imaging Imaging results reviewed: Yes Impressions Examination: Single AP view of the chest. COMPARISON: None. INDICATION: Chest pain DISCUSSION: Lines/tubes: None. Lungs: The lungs are well inflated and clear. No pneumonia or pulmonary edema. Pleura: No pleural effusion or pneumothorax. Heart and mediastinum: The heart and the mediastinum are unremarkable. Bones and soft tissues: No acute bony abnormalities. IMPRESSION: 1. No acute cardiopulmonary abnormalities. Signed by: Dr. Berry Puente M.D. on 03/27/2020 7:14 PM Procedures 12 Lead ECG Interpretation Automatic Edger: Interpreted by ED physician Time: 19:38 Prior SENIOR ACCOUNTING ANALYST tracings: reviewed Rate: normal BPM: 99 QRS axis: normal ST segments normal: Yes T waves normal: Yes Q waves: III, V1 Clinical Impression: abnormal ECG Critical Care Time Subsequent provider I assumed direction of critical care for this patient from another provider of my specialty. Clinical Decision Tools HEART Score HEART Score: HEART Score Response (Comments) Value History Slightly suspicious 0 EKG Non specific repolarization 1 Age < 45 0 Risk factors 1 or 2 risk factors 1 Troponin < or = to normal limit Total 2 Assessment & Plan Assessment & Plan Final Impression: (1) Chest wall pain Assessment & Plan pt with constant chest pain for 21 days worse with movement and deep inspiration, cbc,cmp, ekg, cxr, cardiac enzymes ordered to eval for myocardial infarction, electrolyte abnormality, pneumonia, pulmonary edema, Depart Disposition: HOME, SELF-CARE Last Vital Signs Date Time Temp Pulse Resp B/P (MAP) Pulse Ox O2 Delivery O2 Flow Rate FiO2 03/27/20 17:46 98.0 95 20 125/97 99 Home Meds No Active Prescriptions or Reported Meds Medications in the ED Aspirin 81 mg PRN ONCE PO ; Start 03/27/20 at 18:45; Stop 03/27/20 at 18:46; Status DC JODI GIANG MD March 27, 2020 19:33
[2020-03-27 19:41] LABS: PARTIAL THROMBOPLASTIN TIME 28.4 seconds (23.8-35.5)
[2020-03-27 19:44] LABS: INR 0.88; PROTHROMBIN TIME 12.5 seconds (11.9-14.5)
[2020-03-27 19:51] LABS: ALANINE AMINOTRANSFERASE 38 IU/L (0-55); ALBUMIN 4.5 g/dL (3.5-5.0); ALBUMIN/GLOBULIN RATIO 1.3 (0.8-2.0); ALKALINE PHOSPHATASE 124 IU/L (40-150); ANION GAP 16.7 mmol/L (8-16); BLOOD UREA NITROGEN 13 mg/dL (7-26); BUN/CREATININE RATIO 11 (6-25); CALCIUM 9.8 mg/dL (8.4-10.2); CARBON DIOXIDE 25 mmol/L (22-29); CHLORIDE 104 mmol/L (98-107); CREATINE KINASE 65 IU/L (30-200); CREATININE, SERUM 1.16 mg/dL (0.72-1.25); EST GLOMERULAR FILTRATION RATE > 60 ML/MIN (60-); GLUCOSE 85 mg/dL (74-118); POTASSIUM 4.7 mmol/L (3.5-5.1); SODIUM 141 mmol/L (136-145)
== END 2020-03-27 22:20 | disposition home or self-care (01) ==
LOC: ER 18:03
DX: R07.89 Other chest pain (principal); I10 Essential (primary) hypertension; E11.9 Type 2 diabetes mellitus without complications; F41.9 Anxiety disorder, unspecified
CPT/HCPCS: 36415; 71045; 80053; 82550; 82553; 83880; 84484; 85025; 85610; 85730; 99283

== ENCOUNTER 2021-04-20 21:07 | Emergency (ER) | payer SELFPAY ==
[~2021-04-20] VITALS: Ht 188 cm; Wt 93.0 kg
[2021-04-20] MEDS ORDERED: ASPIRIN 81 MG CHEW TAB PO ONE (21:45)
[2021-04-20] MEDS ORDERED: ACETAMINOPHEN 325 MG TAB PO ONE (21:45)
[2021-04-20] MEDS ORDERED: ACETAMINOPHEN 325 MG TAB ONE (21:47)
[2021-04-20 22:14] LABS: BASOPHILS % 0.3 % (0.0-1.0); EOSINOPHILS # (AUTO) 0.2 (0.0-0.4); EOSINOPHILS % 2.8 % (0.0-6.0); HEMATOCRIT 39.4 % (38.2-49.6); HEMOGLOBIN 13.2 g/dL (14.0-18.0); LYMPHOCYTES % 27.3 % (18.0-39.1); MEAN CORPUSCULAR HGB CONC 33.5 g/dL (31-35); MEAN CORPUSCULAR VOLUME 83.7 fL (81-99); MONOCYTES # (AUTO) 0.6 (0.2-0.8); MONOCYTES % 7.6 % (4.4-11.3); NEUTROPHILS # (AUTO) 4.5 (2.1-6.9); NEUTROPHILS % 61.7 % (38.7-80.0); PLATELET COUNT 265 x10e3/uL (140-360); RED BLOOD COUNT 4.71 x10e6/uL (4.3-5.7); RED CELL DISTRIBUTION WIDTH 12.3 % (11.7-14.4)
[2021-04-20 22:28] LABS: ALANINE AMINOTRANSFERASE 25 IU/L (0-55); ALBUMIN 3.6 g/dL (3.5-5.0); ALBUMIN/GLOBULIN RATIO 1.2 (0.8-2.0); ALKALINE PHOSPHATASE 84 IU/L (40-150); ANION GAP 12.1 mmol/L (8-16); BLOOD UREA NITROGEN 15 mg/dL (7-26); BUN/CREATININE RATIO 15 (6-25); CALCIUM 8.4 mg/dL (8.4-10.2); CARBON DIOXIDE 26 mmol/L (22-29); CHLORIDE 108 mmol/L (98-107); CREATINE KINASE 188 IU/L (30-200); EST GLOMERULAR FILTRATION RATE > 60 ML/MIN (60-); GLUCOSE 86 mg/dL (74-118); POTASSIUM 4.1 mmol/L (3.5-5.1); SODIUM 142 mmol/L (136-145)
== END 2021-04-21 06:39 | disposition home or self-care (01) ==
LOC: ER 21:23
DX: R10.9 Unspecified abdominal pain (principal); R11.0 Nausea; F17.210 Nicotine dependence, cigarettes, uncomplicated; I10 Essential (primary) hypertension; E11.9 Type 2 diabetes mellitus without complications; F41.9 Anxiety disorder, unspecified
CPT/HCPCS: 36415; 71045; 80053; 82550; 82553; 83690; 84484; 85025; 93005; 99282